=== PATIENT | female | born 1955 | race Caucasian/White ===

== ENCOUNTER 2016-07-19 07:12 | Emergency (ER) | payer MEDICARE, MEDICAID ==
[2016-07-19 07:42] VITALS: BP 147/85
--- NOTE | 2016-07-19 10:06 | RAD ---
INDICATION: Right upper extremity pain. COMPARISON: Correlation is made with a prior CT of the chest, abdomen and pelvis from May 23, 2016. TECHNIQUE: Multiple real-time, color flow and Doppler tracings of the right upper extremity were obtained. FINDINGS: The axillary, brachial, basilic and cephalic veins all demonstrate normal compressibility, augmentation with compression and phasic response with respiration. The radial and ulnar arteries demonstrate normal compressibility. The subclavian and internal jugular veins also demonstrate normal color flow imaging and phasic response with respiration. In the right supraclavicular region there is an enlarged lymph node corresponding to the patient's palpable abnormality measuring 1.4 x 0.9 x 1.1 cm. IMPRESSION: 1. NO EVIDENCE FOR DEEP VENOUS THROMBOSIS. 2. ENLARGED SUPRACLAVICULAR LYMPH NODE ON THE RIGHT SIDE.
--- NOTE | 2016-07-19 11:06 | UC ---
Shoulder Pain HPI - HPI Summary HPI Summary: RIGHT SHOULDER PAIN X 2 DAY + SWELLING OF THE NECK ON THE RIGHT SIDE NO FEVER, NO CHILLS - History of Current Complaint Chief Complaint: UCUpperExtremity Stated Complaint: RIGHT SHOULDER/ARM COMPLAINT Time Seen by Provider: 07/19/16 07:32 Hx Obtained From: Patient Hx Last Menstrual Period: 1998 Onset/Duration: Sudden Onset, Lasting Days - 2, Still Present Timing: Constant Severity Initially: Moderate Severity Currently: Moderate Location Of Pain: Is Discrete @ - RIGHT SHOULD / RIGHT SIDE OF THE NECK Pain Intensity: 9 Pain Scale Used: 0-10 Numeric Character: Aching Aggravating Factor(s): Movement Alleviating Factor(s): Nothing Associated Signs And Symptoms: Positive: Swelling - Allergies/Home Medications Allergies/Adverse Reactions: Allergies Allergy/AdvReac Type Severity Reaction Status Date / Time Cephalexin [From Keflex] Allergy Hives Verified 07/19/16 07:18 Fentanyl AdvReac Severe Nausea And Verified 07/19/16 07:18 Vomiting Meperidine [From Demerol HCl] AdvReac Severe halucinatio Verified 07/19/16 07:18 ns Morphine AdvReac Intermediate Nausea And Verified 07/19/16 07:18 Vomiting PMH/Surg Hx/FS Hx/Imm Hx Endocrine History Of: Denies: Diabetes, Thyroid Disease Cardiovascular History Of: Reports: Cardiac Disorders - heart attack 1998 "mild ", Deep Vein Thrombosis - hx pe 1996 Denies: Hypertension, Pacemaker/ICD, Congestive Heart Failure Respiratory History Of: Denies: COPD - Pulmonary Fibrosis 1999, Asthma GI/ History Of: Denies: Ulcer, Renal Disease Neurological History Of: Reports: Migraine Psychological History Of: Reports: Anxiety Cancer History Of: Reports: Breast Cancer - with lung mets - Surgical History Surgical History: Yes Surgery Procedure, Year, and Place: mastectomy right with reconstruction, CHOLECYSTECTOMY, apppendectomy, tonsillectomy,hysterectomy Partial,. lung biopsy X2,left arm r/t trauma, right knee, heart cath no stentsX2, fx left wrist and radial head-h/o having plate & screws, left arm -Radial head replacement, ulnar bone shortening, plate + screws removed-THYROID BIOPSY-PORT FOR CHEMO PUT IN AND TAKEN OUT - Family History Known Family History: Positive: Unknown, Other - positive FMH strep throat - Social History Alcohol Use: Rare Substance Use Type: None Smoking Status (MU): Never Smoked Tobacco - Immunization History Most Recent Influenza Vaccination: [id number] Review of Systems Constitutional: Negative Skin: Negative Eyes: Negative ENT: Negative Respiratory: Negative Cardiovascular: Negative All Other Systems Reviewed And Are Negative: Yes Physical Exam Triage Information Reviewed: Yes Appearance: Well-Appearing, No Pain Distress, Well-Nourished Vital Signs: Initial Vital Signs Temp 99.6 F 07/19/16 07:22 Pulse 99 07/19/16 07:22 Resp 16 07/19/16 07:22 BP 147/85 07/19/16 07:22 Pulse Ox 98 07/19/16 07:22 Eye Exam: Normal Eyes: Positive: Conjunctiva Clear ENT Exam: Normal ENT: Positive: Normal ENT inspection, Hearing grossly normal, Pharynx normal Neck exam: Normal Neck: Positive: Supple, Nontender, Other: - + SUPRACLAVICULAR SWELLING AND TENDERNESS OF THE RIGHT SIDE Respiratory: Positive: Lungs clear, Normal breath sounds, No respiratory distress Cardiovascular: Positive: RRR, No Murmur, Pulses Normal Musculoskeletal Exam: Normal Musculoskeletal: Positive: Strength Intact, ROM Intact, No Edema Skin: Positive: Other - + SWELLING/ ERYTHEMA / TENDENESS RIGHT FOREARM Shoulder Course/Dx - Differential Dx/Diagnosis Provider Diagnoses: LYMPHADENOPATHY Discharge - Discharge Plan Condition: Stable Disposition: HOME Prescriptions: Naproxen [Naproxen EC 500 MG TAB] 500 mg PO BID #20 tab Patient Education Materials: Lymphadenopathy (ED) Referrals: Gladys Delgado MD [Primary Care Provider] - 7 Days Additional Instructions: please follow up with your oncologist regarding the enlarged supraclavicular lymphnodes
== END 2016-07-19 10:26 | disposition home or self-care (01) ==
LOC: UCCORT 07:12
DX: R59.0 Localized enlarged lymph nodes (principal); I25.2 Old myocardial infarction; Z86.711 Personal history of pulmonary embolism; G43.909 Migraine, unspecified, not intractable, without status migrainosus; F41.9 Anxiety disorder, unspecified; Z85.3 Personal history of malignant neoplasm of breast; Z85.118 Personal history of other malignant neoplasm of bronchus and lung; Z90.11 Acquired absence of right breast and nipple; Z90.49 Acquired absence of other specified parts of digestive tract; Z90.711 Acquired absence of uterus with remaining cervical stump; Z96.622 Presence of left artificial elbow joint; Z88.1 Allergy status to other antibiotic agents; Z88.5 Allergy status to narcotic agent
CPT/HCPCS: 99212; G0463

== ENCOUNTER 2018-07-08 09:58 | Emergency (ER) | payer MEDICARE, MEDICAID ==
--- OUTSIDE RECORDS SUMMARY | 2018-07-08 10:04 | XMS REPORT | Continuity of Care Document ---
:1955 External Reference #:[id number] Author Name Dagmar Bell Care Team Providers Name Role Phone Isabel Barrera MD Primary Care Physician Unavailable Payers Date Identification Numbers Payment Provider Subscriber Policy Number: [id number] Medicare Linda Davis PayID: [id number] [address] [place] [address] Effective: 2013 Policy Number: [id number] Medicaid Linda Davis Group Name: 1 1 [address] PayID: [id number] [place] [address] Advance Directives Type Date Description Status Comment MOLST 03/30/2017 MOLST Current and Verified Other Directive 03/06/2014 Health Care Proxy Current and Verified Problems Active Problems Provider Date Malignant neoplasm of nipple and areola of Haylie Walden M.D. Onset: 2013 female breast Note: Dr bhakta (recurrence in 2011 ) on foslodex Hyperlipidemia Haylie Walden M.D. Onset: 07/30/2013 Diverticulosis of sigmoid colon Gladys Delgado M.D. Onset: 03/23/2016 Osteopenia Gladys Delgado M.D. Onset: 04/06/2016 Disorder of lung Val Ruiz MD Onset: 06/08/2016 Asthma without status asthmaticus Val Ruiz MD Onset: 06/29/2016 Mixed hyperlipidemia Carole Tran M.D. Onset: 09/14/2017 FH: Myocardial infarct in 1st degree male Caorle Tran M.D. Onset: 2017 relative <55 years Inactive Problems Depressive disorder Haylie Walden M.D. Onset: 07/30/2013 Inactive: 03/23/2016 Resolved Problems Acute pericarditis Haylie Walden M.D. 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 Allergies, Adverse Reactions, Alerts Active Allergies Reaction Severity Comments Date Morphine Nausea and Vomiting Moderate 07/30/2013 Demerol Moderate 07/30/2013 Effexor Made Feel Worse 10/29/2013 Medications Active Medications SIG Qnty Indications Ordering Date Provider Azithromycin two tabs day 6tabs J20.9 Erika Loaiza, 06/25/2018 250mg one, one daily N.P. Tablets till gone Prednisone 4 tablets by 40tabs J20.9 Erika Loaiza, 06/25/2018 10mg Tablets mouth for 4 days N.P. 3 tablets by mouth for 4 days 2 tablets by mouth for 4 days 1 tablet by mouth for 4 days Tylenol With Codeine 1 tablet by 21tabs J20.9 Erika Loaiza, 06/25/2018 #3 mouth every 8 N.P. 300-30mg Tablets hours as needed cough Tramadol HCL 1-2 tablets by 30tabs Zeyad Medina, 06/06/2018 50mg Tablets mouth every 6 MD hours as needed pain Tizanidine HCL take 1 tablet by 30tabs Erika Loaiza, 03/27/2018 4mg mouth every 8 N.P. Tablets hours as needed Sertraline HCL 1 by mouth every 30tabs F41.1 Erika Loaiza, 03/09/2018 100mg day N.P. Tablets Triamcinolone Apply Twice A 30units Erika Loaiza, 03/09/2018 Acetonide Day Unitl Clear N.P. 0.1% Cream Rosuvastatin Calcium take 1 tablet by 90tabs Carole Tran, 09/26/2017 10mg mouth every M.D. Tablets evening Trazodone HCL Take One Tablet 30tabs G47.00 Erika Fadia, 07/11/2017 50mg By Mouth AT N.P. Tablets Bedtime as Needed Alprazolam Take One Tablet 30tabs F41.9 Erika Fadia, 07/11/2017 0.25mg Tablets By Mouth Three N.P. Times A Day as Needed For Anxiety Maximum Daily Dose=3 Omeprazole Take One Capsule 90caps Gladys Delgado, 05/01/2017 20mg Capsules By Mouth Every M.D. DR Morning On Empty Stomach as Needed Multivitamin Adults once a day 90tabs Gladys Delgado, 07/06/2016 50+ M.D. Adlt 50+ Tablets Aspirin Chew One Tablet 90units Gladys Delgado, 09/03/2015 81mg Chewtabs By Mouth Every M.D. Day Vitamin C TR 1 tab by mouth 120tabs Gladys Delgado, 09/03/2015 500mg 2x per day M.D. Tablets ER Folic Acid 1 by mouth every 30tabs Gladys Delgado, 09/03/2015 1mg Tablets day M.D. Probiotic & 1 cap po 120caps Haylie Walden, 09/03/2015 Acidophilus Formula everyday M.D. Extra Strength Capsules Vitamin D3 Maximum 2 by mouth every Unknown Strength day 5000Unit Capsules Xopenex use one dose 72ml Erika Fadia, 1.25mg/3ML inhaled 3x daily N.P. Nebulizer for sob as needed Mushroom Immune 1 daily Unknown Supplement W/Miatake,Reish Fish Oil W/ [place] 3 1200 twice daily Unknown 360 Calcium W/Magnesium daily Unknown 1200mg Ventolin HFA 2 puffs by mouth 8gm Erika Monikn, 108(90Base) four times a day N.P. mcg/Act Aerosol as needed Green Tea Extract daily Unknown 750mg Capsules Cinnamon bid Unknown 500mg Tablets [place] Red daily Unknown Turmeric 2 po qd Unknown 500mg Tablets Co Q-10 1 by mouth every Unknown 300mg Capsules day Elderberry 1 po qd Unknown 550mg Oil Of Oregano 1200mg po qd Unknown Capsules Pycnogenol Complex once a day Unknown 100mg Tablets [place] 1000mg po qd as Unknown needed Faslodex every month Unknown 250mg/5ML starting 10/26/13 Solution History Medications Triamcinolone apply twice a 30units R21 Erika Loaiza, 02/09/2018 - Acetonide day until clear N.P. 02/23/2018 0.1% Cream Sertraline HCL 1 by mouth 30tabs F41.1 Erika Loaiza, 02/09/2018 - 50mg every day N.P. 03/09/2018 Tablets Escitalopram Oxalate 1 by mouth 30tabs F41.9 Erika Loaiza, 07/11/2017 - every day N.P. 08/14/2017 10mg Tablets Magnesium once a day 90caps Gladys Delgado, 03/30/2017 - 500mg M.D. 09/12/2017 Capsules [place]-3 1 tab by mouth Haylie Walden, 03/30/2017 - 1500mg Capsules twice daily M.D. 09/03/2017 Acid Movement Therapist 1 PO bid 60tabs K21.9 Gladys Delgado, 03/30/2017 - 150mg M.D. 07/11/2017 Tablets Calcium Take One Tablet 60tabs Gladys Delgado, 01/22/2017 - Carbonate-Vitamin D By Mouth Twice M.D. 09/03/2017 A Day [id number] Tablets Magnesium Gluconate 1 tab po 120tabs Gladys Delgado, 12/14/2016 - everyday M.D. 03/30/2017 27.5mg Tablets Tab-A-Ese Take One Tablet 90tabs Gladys Delgado, 12/12/2016 - Tablets By Mouth Every M.D. 08/14/2017 Day Omeprazole Take One 90caps K21.9 Gladys Delgado, 03/23/2016 - 20mg Capsule By M.D. 03/30/[address] Mouth Every Morning On Empty Stomach as Needed Magnesium Gluconate 1 tab po 120tabs Haylie Walden, 09/03/2015 - everyday M.D. 12/14/2016 500(27mg) mg Tablets [place]-3 Plus 1 capsule po 2x 120caps Haylie Walden, 09/03/2015 - 1000mg per day M.D. 03/30/2017 Capsules Calcium 500 + D3 1 tab by mouth 60tabs Gladys Delgado, 09/03/2015 - 2x per day M.D. 08/14/2017 [id number] Tablets Multivitamin Adult 120tabs Gladys Delgado, 09/03/2015 - M.D. 07/06/2016 Tablets Amoxicillin 1 by mouth 20caps J01.90 Haylie Walden, 03/10/2015 - 500mg twice a day M.D. 04/30/2015 Capsules Guaifenesin ER 1 by mouth 20tabs J01.90 Haylie Walden, 03/10/2015 - 600mg twice a day M.D. 04/30/2015 Tablets ER 12HR Omeprazole Take One 30caps K21.9 Haylie Walden, 03/10/2015 - 40mg Capsule By M.D. 03/23/[address] Mouth Every Day Escitalopram Oxalate 1 by mouth 30tabs 311 Haylie Walden, 10/21/2014 - every day M.D. 04/30/2015 10mg Tablets Amoxicillin/Clavulana 1 tab by mouth 20tabs 461.1 Haylie Walden, 2013 - te Potassium 2x per day M.D. 04/03/2014 875-125mg Tablets Aspirin 1 by mouth 120tabs Haylie Walden, 12/31/2013 - 81mg Tablets DR every day M.D. 09/03/2015 Ventolin HFA 2 puffs by 1units 786.05 Haylie Walden, 12/31/2013 - mouth four M.D. 01/06/2015 108(90Base) mcg/Act times a day as Aerosol needed Albuterol Sulfate 1 vial every 4 1box J84.112 Haylie Walden, 09/12/2013 - hour as needed M.D. 03/30/2017 (2.5mg/3ML) 0.083% ans every 2 Nebulizer hour if needed Venlafaxine HCL ER 1 by mouth 90tabs 311 Haylie Walden, 09/03/2013 - every day M.D. 10/29/2013 150mg Tablets ER 24HR Venlafaxine HCL ER 1 tab by mouth 1month 311 Haylie Walden, 07/30/2013 - every day 7 M.D. 09/03/2013 37.5mg Caps ER 24HR days the 2 tab by mouth every day 3 weeks Alprazolam take 1 tablet 90tabs F32.9 Haylie Walden, 07/30/2013 - 0.25mg by mouth three M.D. 03/30/2017 Tablets Dispers times a day as needed for anxiety Calcium 1 po bid 120tabs Haylie Walden, - Tab Tab MD 01/22/2017 Life Ext Vits. 2 po qd Unknown - 08/14/2017 Advocare Probiotic 1 po qd Unknown - 06/28/2016 Advocare [place] P[place] 2 po qd Unknown - 10/21/2014 Fish Oil 2 by mouth Unknown - Capsules every day 06/28/2016 Folic Acid 1 by mouth 90tabs Unknown - 800mcg every day 08/14/2017 Tablets Magnesium 1 every day 90tabs Unknown - 400mg Tablets 06/28/2016 Hyoscyamine Sulfate 1 by mouth 30tabs Unknown - ER daily every day 10/21/2014 0.375mg Tablets ER 12HR Lansoprazole Unknown - 30mg 04/30/[address] Oxycodone HCL Unknown - 5mg 03/23/2016 Tablets Trazodone HCL Unknown - 100mg 04/30/2015 Tablets Vitamin C Plus 1 by mouth bid Unknown - 500mg 08/14/2017 Tablets Melatonin ER 1 by mouth Unknown - 5mg every night at 01/15/2018 Tablets ER bedtime prn Cordyceps Mushroom bid Unknown - Immune Supplement 01/15/2018 1500mg Ambien one by mouth at Unknown - 5mg Tablets bedtime as 02/09/2018 needed for sleep Probiotic 1 by mouth 14caps Haylie Walden, - Capsules every day M.D. 10/29/2013 Xopenex every 6 to 8 100units Haylie Walden, - 1.25mg/3ML hours as needed M.D. 04/30/2015 Nebulizer Buspirone HCL 1 by mouth 30tabs Haylie Walden, - 5mg twice a day M.D. 09/03/2013 Tablets Bupropion HCL ER (SR) 1 tab bid Haylie Walden, - M.D. 09/03/2013 200mg Tablets ER 12HR Alprazolam one by mouth up 30tabs Unknown - 0.25mg to three times 07/31/2013 Tablets daily as needed for anxiety Diazepam 1 tab 30 2tabs Haylie Walden - 5mg Tablets minutes before M.D. 09/03/2013 mri, make take a second tablet if needed Trazodone HCL 1 tablet at 30tabs Haylie Walden, - 50mg bedtime as M.D. 04/03/2014 Tablets needed Aspirin 1 by mouth Haylie Walden, - 325mg Tablets every day M.D. 12/31/2013 Lipitor 1 by mouth 90tabs Haylie Walden, - 10mg Tablets every night at M.D. 09/03/2013 bedtime Advair Diskus ( Not Using) 1 1units Erika Loaiza, - puff by mouth N.P. 03/29/2018 250-50mcg/Dose twice a day prn Aerosol Metoprolol Tartrate 1/2 by mouth 30tabs Haylie Walden, - twice a day M.D. 10/29/2013 25mg Tablets Dexilant by mouth every 30caps Haylie Walden, - 60mg Capsules day M.D. 12/31/2013 Vitamin D 1 by mouth 30caps Gladys Delgado, - 2000Unit every day (pt M.D. 05/22/2018 Capsules takes 53534 iu daily) Calcium 2 by mouth 60tabs Haylie Walden, - 500mg Tablets every day M.D. 10/29/2013 One Daily Womens Haylie Walden, - M.D. 10/29/2013 Tablets Immunizations CPT Code Status Date Vaccine Lot # [id number] Given 03/30/2017 Pneumonia Vaccine [id number] Given 11/12/2016 Influenza Virus Vaccine, Quadrivalent, Split, Preservative Free [id number] Given 03/25/2016 Tdap - Tetanus/Diptheria/Acellular Pertussis [id number] Given 03/23/2016 Pneumococcal Conjugate Vaccine 13 Valent For [id number] Intramuscular Use 11277 Given 01/19/2016 Influ Virus Vaccine, Quadrivalent, Split Virus, [place] [address] Given 11/14/2014 Influenza Virus Vaccine, Quadrivalent, Split, Preservative Free [id number] Given 12/03/2013 Flu Vaccine NOS Vital Signs Date Vital Result Comment 06/25/2018 11:39am Height 65 inches 5'5" Weight 168.00 lb Heart Rate 95 /min BP Systolic 112 mmHg BP Diastolic 75 mmHg Body Temperature 98.1 F O2 % BldC Oximetry 97 % BMI (Body Mass Index) 28.0 kg/m2 06/05/2018 8:59am Height 65 inches 5'5" Weight 165.00 lb Patient stated Heart Rate 72 /min BP Systolic 134 mmHg BP Diastolic 86 mmHg Respiratory Rate 16 /min Pain Level 6 BMI (Body Mass Index) 27.5 kg/m2 05/25/2018 1:13pm Height 65 inches 5'5" Weight 168.00 lb Heart Rate 105 /min BP Systolic Sitting 124 mmHg BP Diastolic Sitting 72 mmHg Respiratory Rate 12 /min Pain Level 8 O2 % BldC Oximetry 97 % BMI (Body Mass Index) 28.0 kg/m2 05/22/2018 11:11am Height 56.5 inches 4'8.50" Weight 170.00 lb Heart Rate 81 /min BP Systolic 127 mmHg BP Diastolic 83 mmHg Body Temperature 98.3 F O2 % BldC Oximetry 96 % BMI (Body Mass Index) 37.4 kg/m2 04/02/2018 8:40am Height 56.5 inches 4'8.50" Weight 166.50 lb Heart Rate 73 /min BP Systolic Sitting 137 mmHg reg adult cuff left arm BP Diastolic Sitting 88 mmHg reg adult cuff left arm Respiratory Rate 16 /min Body Temperature 97.9 F O2 % BldC Oximetry 98 % at rest on room air BMI (Body Mass Index) 36.7 kg/m2 03/23/2018 10:34am Height 65.25 inches 5'5.25" Weight 165.00 lb Heart Rate 82 /min BP Systolic 120 mmHg BP Diastolic 82 mmHg Body Temperature 98.7 F O2 % BldC Oximetry 96 % BMI (Body Mass Index) 27.2 kg/m2 03/09/2018 10:06am Height 65.25 inches 5'5.25" Weight 167.00 lb Heart Rate 74 /min BP Systolic 125 mmHg BP Diastolic 82 mmHg Body Temperature 97.9 F O2 % BldC Oximetry 97 % BMI (Body Mass Index) 27.6 kg/m2 02/23/2018 10:17am Height 65.25 inches 5'5.25" Weight 168.00 lb Heart Rate 106 /min BP Systolic 100 mmHg BP Diastolic 56 mmHg O2 % BldC Oximetry 95 % BMI (Body Mass Index) 27.7 kg/m2 02/09/2018 11:16am Height 65.25 inches 5'5.25" Weight 170.00 lb Heart Rate 83 /min BP Systolic 118 mmHg BP Diastolic 82 mmHg Body Temperature 97.5 F O2 % BldC Oximetry 98 % BMI (Body Mass Index) 28.1 kg/m2 01/16/2018 10:46am Height 65.25 inches 5'5.25" Weight 166.00 lb with shoes Heart Rate 78 /min BP Systolic Sitting 110 mmHg lue reg cuff BP Diastolic Sitting 76 mmHg lue reg cuff BP Systolic Standing 112 mmHg lue reg cuff BP Diastolic Standing 78 mmHg lue reg cuff BMI (Body Mass Index) 27.4 kg/m2 Ejection Fraction 60-65% echo. 09/21/2017 09/14/2017 1:45pm Height 65.25 inches 5'5.25" Weight 166.00 lb without shoes Heart Rate 102 /min BP Systolic Sitting 114 mmHg Lue reg cuff BP Diastolic Sitting 80 mmHg Lue reg cuff BP Systolic Standing 120 mmHg Lue reg cuff BP Diastolic Standing 72 mmHg Lue reg cuff Respiratory Rate 16 /min BMI (Body Mass Index) 27.4 kg/m2 08/14/2017 9:53am Weight 162.00 lb Heart Rate 92 /min BP Systolic 128 mmHg BP Diastolic 80 mmHg Body Temperature 97.9 F O2 % BldC Oximetry 97 % 07/11/2017 10:54am Height 66.2 inches 5'6.20" Weight 168.50 lb Heart Rate 88 /min BP Systolic 120 mmHg BP Diastolic 76 mmHg Body Temperature 97.7 F O2 % BldC Oximetry 94 % BMI (Body Mass Index) 27.0 kg/m2 03/30/2017 8:51am Height 66.2 inches 5'6.20" Weight 164.00 lb Heart Rate 85 /min BP Systolic Sitting 120 mmHg BP Diastolic Sitting 78 mmHg O2 % BldC Oximetry 98 % BMI (Body Mass Index) 26.3 kg/m2 06/29/2016 9:08am Height 65 inches 5'5" Weight 165.00 lb Heart Rate 88 /min BP Systolic Sitting 140 mmHg BP Diastolic Sitting 80 mmHg Respiratory Rate 16 /min O2 % BldC Oximetry 97 % BMI (Body Mass Index) 27.5 kg/m2 06/08/2016 9:42am Height 65 inches 5'5" Weight 165.00 lb Heart Rate 83 /min BP Systolic Sitting 126 mmHg BP Diastolic Sitting 78 mmHg Respiratory Rate 14 /min O2 % BldC Oximetry 98 % BMI (Body Mass Index) 27.5 kg/m2 03/23/2016 9:12am Height 67 inches 5'7" Weight 173.00 lb Heart Rate 88 /min BP Systolic Sitting 122 mmHg BP Diastolic Sitting 70 mmHg Respiratory Rate 15 /min Body Temperature 98.0 F O2 % BldC Oximetry 98 % BMI (Body Mass Index) 27.1 kg/m2 10/08/2015 2:01pm Weight 172.00 lb with shoes Heart Rate 119 /min BP Systolic Sitting 110 mmHg BP Diastolic Sitting 80 mmHg Body Temperature 97.2 F O2 % BldC Oximetry 98 % 09/03/2015 3:30pm Weight 171.00 lb Heart Rate 108 /min BP Systolic Sitting 128 mmHg BP Diastolic Sitting 70 mmHg O2 % BldC Oximetry 97 % 06/30/2015 3:21pm Weight 168.00 lb Heart Rate 107 /min BP Systolic Sitting 121 mmHg BP Diastolic Sitting 80 mmHg Body Temperature 98.0 F 04/30/2015 10:03am Height 65 inches 5'5" Weight 167.00 lb Heart Rate 81 /min BP Systolic 120 mmHg BP Diastolic 88 mmHg Body Temperature 97.7 F O2 % BldC Oximetry 98 % BMI (Body Mass Index) 27.8 kg/m2 03/10/2015 3:50pm Weight 170.00 lb Heart Rate 56 /min BP Systolic Sitting 139 mmHg BP Diastolic Sitting 83 mmHg Body Temperature 98.7 F 02/17/2015 10:23am Height 65 inches 5'5" Weight 161.00 lb Heart Rate 79 /min BP Systolic Sitting 122 mmHg BP Diastolic Sitting 76 mmHg Body Temperature 97.5 F O2 % BldC Oximetry 97 % BMI (Body Mass Index) 26.8 kg/m2 01/06/2015 11:25am Height 65 inches 5'5" Weight 163.00 lb Heart Rate 71 /min BP Systolic 118 mmHg BP Diastolic 80 mmHg O2 % BldC Oximetry 98 % BMI (Body Mass Index) 27.1 kg/m2 12/02/2014 10:49am Height 65 inches 5'5" Weight 161.00 lb Heart Rate 82 /min BP Systolic Sitting 124 mmHg BP Diastolic Sitting 80 mmHg Body Temperature 98.6 F O2 % BldC Oximetry 96 % BMI (Body Mass Index) 26.8 kg/m2 11/11/2014 11:28am Height 65 inches 5'5" Weight 161.00 lb Heart Rate 98 /min BP Systolic Sitting 118 mmHg BP Diastolic Sitting 72 mmHg Body Temperature 98.0 F O2 % BldC Oximetry 98 % BMI (Body Mass Index) 26.8 kg/m2 10/21/2014 8:45am Height 65 inches 5'5" Weight 161.00 lb Heart Rate 94 /min BP Systolic Sitting 124 mmHg BP Diastolic Sitting 78 mmHg O2 % BldC Oximetry 98 % BMI (Body Mass Index) 26.8 kg/m2 10/02/2014 1:52pm Height 65 inches 5'5" Weight 169.00 lb Heart Rate 94 /min BP Systolic Sitting 120 mmHg BP Diastolic Sitting 78 mmHg Body Temperature 98.5 F O2 % BldC Oximetry 96 % BMI (Body Mass Index) 28.1 kg/m2 09/12/2014 2:27pm Height 65 inches 5'5" Weight 161.00 lb Heart Rate 88 /min BP Systolic Sitting 124 mmHg LA reg cuff BP Diastolic Sitting 92 mmHg LA reg cuff BP Systolic Standing 122 mmHg LA BP Diastolic Standing 90 mmHg LA Respiratory Rate 16 /min BMI (Body Mass Index) 26.8 kg/m2 Ejection Fraction 50-55% 09/05/13 cath 04/03/2014 10:33am Height 65 inches 5'5" Weight 162.75 lb Heart Rate 89 /min BP Systolic Sitting 143 mmHg BP Diastolic Sitting 82 mmHg BMI (Body Mass Index) 27.1 kg/m2 02/14/2014 11:35am Height 65 inches 5'5" Weight 154.50 lb Heart Rate 94 /min BP Systolic Sitting 132 mmHg BP Diastolic Sitting 85 mmHg Body Temperature 99.2 F BMI (Body Mass Index) 25.7 kg/m2 12/31/2013 8:37am Height 65 inches 5'5" Weight 151.25 lb Heart Rate 93 /min BP Systolic Sitting 115 mmHg BP Diastolic Sitting 78 mmHg BMI (Body Mass Index) 25.2 kg/m2 10/29/2013 10:43am Height 65 inches 5'5" Weight 150.00 lb Heart Rate 83 /min BP Systolic Sitting 102 mmHg BP Diastolic Sitting 52 mmHg O2 % BldC Oximetry 98 % BMI (Body Mass Index) 25.0 kg/m2 09/20/2013 1:43pm Height 65 inches 5'5" Weight 150.00 lb Heart Rate 100 /min BP Systolic Sitting 104 mmHg LA BP Diastolic Sitting 74 mmHg LA BP Systolic Standing 100 mmHg BP Diastolic Standing 70 mmHg Respiratory Rate 14 /min BMI (Body Mass Index) 25.0 kg/m2 09/18/2013 3:40pm Height 65 inches 5'5" Weight 147.00 lb Heart Rate 88 /min 92 BP Systolic Sitting 106 mmHg left arm, reg cuff BP Diastolic Sitting 78 mmHg left arm, reg cuff BP Systolic Standing 104 mmHg left arm, reg cuff BP Diastolic Standing 72 mmHg left arm, reg cuff Respiratory Rate 14 /min BMI (Body Mass Index) 24.5 kg/m2 09/11/2013 2:40pm Heart Rate 100 /min BP Systolic Sitting 108 mmHg BP Diastolic Sitting 68 mmHg Respiratory Rate 16 /min 09/04/2013 9:51am Height 65 inches 5'5" Weight 146.00 lb no shoes Heart Rate 74 /min BP Systolic Sitting 102 mmHg LA, reg cuff BP Diastolic Sitting 72 mmHg LA, reg cuff BP Systolic Standing 94 mmHg LA BP Diastolic Standing 70 mmHg LA Respiratory Rate 16 /min BMI (Body Mass Index) 24.3 kg/m2 09/03/2013 9:47am Weight 146.00 lb Heart Rate 98 /min BP Systolic Sitting 120 mmHg BP Diastolic Sitting 70 mmHg 07/30/2013 12:57pm Height 65 inches 5'5" Weight 147.25 lb Heart Rate 80 /min BP Systolic Sitting 98 mmHg BP Diastolic Sitting 68 mmHg Body Temperature 98.6 F BMI (Body Mass Index) 24.5 kg/m2 Results Test Date Facility Test Result H/L Range Note Lipid Panel - 02/21/2018 [facility] Creatine 135 U/L N 10-[address] Kinase(CK) [place] [address] [phone] Comp Metabolic 02/21/2018 [facility] Sodium 141 mmol/L N 135- [address] [place] [address] [phone] Potassium 4.8 mmol/L N 3.5-5.0 Chloride 105 mmol/L N 101-111 Co2 Carbon Dioxide 26 mmol/L N 22-32 Anion Gap 10 mmol/L N 2-11 Glucose 100 mg/dL N 70-100 Blood Urea Nitrogen 20 mg/dL N 6-24 Creatinine 0.78 mg/dL N 0.51-0.95 BUN/Creatinine Ratio 25.6 High 8-20 Calcium 9.9 mg/dL N 8.6-10.3 Total Protein 7.3 g/dL N 6.4-8.9 Albumin 4.7 g/dL N 3.2-5.2 Globulin 2.6 g/dL N 2-4 Albumin/Globulin Ratio 1.8 N 1-3 Total Bilirubin 0.50 mg/dL N 0.2-1.0 Alkaline Phosphatase 96 U/L N 34-104 Alt 44 U/L N 7-52 Ast 34 U/L N 13-39 Egfr Non- 75.1 >60 Egfr 90.9 >60 1 Lipid Profile 02/21/2018 [facility] Triglycerides 176 mg/dL 2 (Trig/Chol/HDL) [place] [address] [phone] Cholesterol 150 mg/dL 3 HDL Cholesterol 53.1 mg/dL 4 LDL Cholesterol 62 mg/dL 5 CBC Auto Diff 12/12/2017 [facility] White Blood 5.5 10^3/uL N 3.5-10.8 [place] [address] [phone] Red Blood Count 4.72 10^6/uL N 4.00-5.40 Hemoglobin 13.7 g/dL N 12.0-16.0 Hematocrit 40 % N 35-47 Mean Corpuscular Volume 84 fL N 80-97 Mean Corpuscular Hemoglobin 29 pg N 27-31 Mean Corpuscular HGB Conc 35 g/dL N 31-36 Red Cell Distribution Width 13 % N 10.5-15 Platelet Count 212 10^3/uL N 150-450 Mean Platelet Volume 8.9 um3 N 7.4-10.4 Abs Neutrophils 3.3 10^3/uL N 1.5-7.7 Abs Lymphocytes 1.6 10^3/uL N 1.0-4.8 Abs Monocytes 0.4 10^3/uL N 0-0.8 Abs Eosinophils 0.1 10^3/uL N 0-0.6 Abs Basophils 0.1 10^3/uL N 0-0.2 Abs Nucleated RBC 0 10^3/uL Granulocyte % 59.1 % N 38-83 Lymphocyte % 29.7 % N 25-47 Monocyte % 8.0 % High 0-7 Eosinophil % 2.0 % N 0-6 Basophil % 1.2 % N 0-2 Nucleated Red Blood Cells % 0.2 Comp Metabolic Panel 12/12/2017 [facility] Sodium 140 mmol/L N 135-[address] [place] [address] [phone] Potassium 4.2 mmol/L N 3.5-5.0 Chloride 104 mmol/L N 101-111 Co2 Carbon Dioxide 27 mmol/L N 22-32 Anion Gap 9 mmol/L N 2-11 Glucose 98 mg/dL N 70-100 Blood Urea Nitrogen 19 mg/dL N 6-24 Creatinine 0.71 mg/dL N 0.51-0.95 BUN/Creatinine Ratio 26.8 High 8-20 Calcium 10.1 mg/dL N 8.6-10.3 Total Protein 7.1 g/dL N 6.4-8.9 Albumin 4.8 g/dL N 3.2-5.2 Globulin 2.3 g/dL N 2-4 Albumin/Globulin Ratio 2.1 N 1-3 Total Bilirubin 0.60 mg/dL N 0.2-1.0 Alkaline Phosphatase 91 U/L N 34-104 Alt 41 U/L N 7-52 Ast 29 U/L N 13-39 Egfr Non- 83.7 >60 Egfr 101.3 >60 6 Laboratory test finding 12/12/2017 [facility] CA 15-3 14 U/mL <[address] [place] [address] [phone] Breast Carcinoma Ag(Ca27.29) 19.3 U/mL <=38.0 8 Laboratory test 09/15/2017 [facility] C Reactive 3.41 mg/L N < 8.[address] [place] [address] [phone] Comp Metabolic 05/23/2017 [facility] Sodium 139 mmol/L N 133- [address] [place] [address] [phone] Potassium 4.0 mmol/L N 3.5-5.0 Chloride 104 mmol/L N 101-111 Co2 Carbon Dioxide 26 mmol/L N 22-32 Anion Gap 9 mmol/L N 2-11 Glucose 108 mg/dL High 70-100 Blood Urea Nitrogen 17 mg/dL N 6-24 Creatinine 0.73 mg/dL N 0.51-0.95 BUN/Creatinine Ratio 23.3 High 8-20 Calcium 9.7 mg/dL N 8.6-10.3 Total Protein 6.7 g/dL N 6.4-8.9 Albumin 4.2 g/dL N 3.2-5.2 Globulin 2.5 g/dL N 2-4 Albumin/Globulin Ratio 1.7 N 1-3 Total Bilirubin 0.60 mg/dL N 0.2-1.0 Alkaline Phosphatase 77 U/L N 34-104 Alt 30 U/L N 7-52 Ast 24 U/L N 13-39 Egfr Non- 81.3 >60 Egfr 104.6 >60 9 CBC No Diff 05/23/2017 [facility] White Blood 4.3 10^3/uL N 3.5-10.[address] [place] [address] [phone] Red Blood Count 4.55 10^6/uL N 4.0-5.4 Hemoglobin 13.2 g/dL N 12.0-16.0 Hematocrit 39 % N 35-47 Mean Corpuscular Volume 85 fL N 80-97 Mean Corpuscular Hemoglobin 29 pg N 27-31 Mean Corpuscular HGB Conc 34 g/dL N 31-36 Red Cell Distribution Width 13 % N 10.5-15 Platelet Count 200 10^3/uL N 150-450 Mean Platelet Volume 9 um3 N 7.4-10.4 Lipid Profile 05/23/2017 [facility] Triglycerides 178 mg/dL 10 (Trig/Chol/HDL) [address] [place] [address] [phone] Cholesterol 237 mg/dL 11 HDL Cholesterol 47.6 mg/dL 12 LDL Cholesterol 154 mg/dL 13 Lipid Profile 11/08/2016 [facility] Triglycerides 215 mg/dL N 14 (Trig/Chol/HDL) [address] [place] [address] [phone] Cholesterol 228 mg/dL N 15 HDL Cholesterol 45.8 mg/dL N 16 LDL Cholesterol 139 mg/dL N 17 CBC Auto Diff 07/28/2016 [facility] White Blood 6.6 10^3/uL N 3.5-10.[address] [place] [address] [phone] Red Blood Count 4.75 10^6/uL N 4.0-5.4 Hemoglobin 13.6 g/dL N 12.0-16.0 Hematocrit 40 % N 35-47 Mean Corpuscular Volume 85 fL N 80-97 Mean Corpuscular Hemoglobin 29 pg N 27-31 Mean Corpuscular HGB Conc 34 g/dL N 31-36 Red Cell Distribution Width 13 % N 10.5-15 Platelet Count 223 10^3/uL N 150-450 Mean Platelet Volume 8 um3 N 7.4-10.4 Abs Neutrophils 4.1 10^3/uL N 1.5-7.7 Abs Lymphocytes 1.9 10^3/uL N 1.0-4.8 Abs Monocytes 0.4 10^3/uL N 0-0.8 Abs Eosinophils 0.2 10^3/uL N 0-0.6 Abs Basophils 0.1 10^3/uL N 0-0.2 Abs Nucleated RBC 0.01 10^3/uL N Granulocyte % 61.3 % N 38-83 Lymphocyte % 28.7 % N 25-47 Monocyte % 6.3 % N 1-9 Eosinophil % 2.7 % N 0-6 Basophil % 1.0 % N 0-2 Nucleated Red Blood Cells % 0.1 N Comp Metabolic Panel 07/28/2016 [facility] Sodium 140 mmol/L N 133-[address] [place] [address] [phone] Potassium 3.6 mmol/L N 3.5-5.0 Chloride 105 mmol/L N 101-111 Co2 Carbon Dioxide 25 mmol/L N 22-32 Anion Gap 10 mmol/L N 2-11 Glucose 108 mg/dL High 70-100 Blood Urea Nitrogen 18 mg/dL N 6-24 Creatinine 0.74 mg/dL N 0.51-0.95 BUN/Creatinine Ratio 24.3 High 8-20 Calcium 9.5 mg/dL N 8.6-10.3 Total Protein 7.5 g/dL N 6.4-8.9 Albumin 4.4 g/dL N 3.2-5.2 Globulin 3.1 g/dL N 2-4 Albumin/Globulin Ratio 1.4 N 1-3 Total Bilirubin 0.30 mg/dL N 0.2-1.0 Alkaline Phosphatase 93 U/L N 34-104 Alt 45 U/L N 7-52 Ast 30 U/L N 13-39 Egfr Non- 80.3 N >60 Egfr 103.3 N >60 18 Laboratory test 07/28/2016 [facility] CA 27-29 17.72 U/mL N 3.5-38.6 19 finding [address] [place] [address] [phone] CA 15-3 16 U/mL N <30 20 Lipid Profile 04/25/2016 [facility] Triglycerides 324 mg/dL N 21 (Trig/Chol/HDL) [address] [place] [address] [phone] Cholesterol 273 mg/dL N 22 HDL Cholesterol 42.6 mg/dL N 23 LDL Cholesterol 166 mg/dL N 24 Laboratory 04/25/2016 [facility] Hepatitis C Nonreactive N Nonreactive 25 test finding [address] [facility] [place] [place] [address] [phone] CBC Auto Diff 04/25/2016 [facility] White Blood 5.1 10^3/uL N 3.5-10.8 [address] [facility] [place] [place] [address] [phone] Red Blood Count 4.59 10^6/uL N 4.0-5.4 Hemoglobin 13.2 g/dL N 12.0-16.0 Hematocrit 39 % N 35-47 Mean Corpuscular Volume 84 fL N 80-97 Mean Corpuscular Hemoglobin 29 pg N 27-31 Mean Corpuscular HGB Conc 34 g/dL N 31-36 Red Cell Distribution Width 13 % N 10.5-15 Platelet Count 191 10^3/uL N 150-450 Mean Platelet Volume 9 um3 N 7.4-10.4 Abs Neutrophils 2.8 10^3/uL N 1.5-7.7 Abs Lymphocytes 1.6 10^3/uL N 1.0-4.8 Abs Monocytes 0.5 10^3/uL N 0-0.8 Abs Eosinophils 0.2 10^3/uL N 0-0.6 Abs Basophils 0.1 10^3/uL N 0-0.2 Abs Nucleated RBC 0 10^3/uL N Granulocyte % 55.1 % N 38-83 Lymphocyte % 31.3 % N 25-47 Monocyte % 9.0 % N 1-9 Eosinophil % 3.4 % N 0-6 Basophil % 1.2 % N 0-2 Nucleated Red Blood Cells % 0 N Comp Metabolic Panel 04/25/2016 [facility] Sodium 140 mmol/L N 133-[address] [place] [address] [phone] Potassium 4.3 mmol/L N 3.5-5.0 Chloride 105 mmol/L N 101-111 Co2 Carbon Dioxide 25 mmol/L N 22-32 Anion Gap 10 mmol/L N 2-11 Glucose 104 mg/dL High 70-100 Blood Urea Nitrogen 19 mg/dL N 6-24 Creatinine 0.72 mg/dL N 0.51-0.95 BUN/Creatinine Ratio 26.4 High 8-20 Calcium 9.8 mg/dL N 8.6-10.3 Total Protein 7.0 g/dL N 6.4-8.9 Albumin 4.2 g/dL N 3.2-5.2 Globulin 2.8 g/dL N 2-4 Albumin/Globulin Ratio 1.5 N 1-3 Total Bilirubin 0.40 mg/dL N 0.2-1.0 Alkaline Phosphatase 96 U/L N 34-104 Alt 32 U/L N 7-52 Ast 23 U/L N 13-39 Egfr Non- 82.9 N >60 Egfr 106.6 N >60 26 Laboratory test finding 04/25/2016 [facility] CA 15-3 18 U/mL N <[address] [place] [address] [phone] CA 27-29 23.31 U/mL N 3.5-38.6 28 Laboratory test 10/12/2015 [facility] TSH (Thyroid 1.12 mcIU/mL N 0.34-5.[address] Stim Horm) [place] [address] [phone] Free T4 (Free Thyroxine) 0.91 ng/dL N 0.61-1.12 Lipid Profile 10/12/2015 [facility] Triglycerides 160 mg/dL N 29 (Trig/Chol/HDL) [address] [place] [address] [phone] Cholesterol 229 mg/dL N 30 HDL Cholesterol 43.9 mg/dL N 31 LDL Cholesterol 153 mg/dL N 32 Laboratory test 06/30/2015 [facility] Culture Throat SEE RESULT [address] [place] [address] [phone] Laboratory test 06/30/2015 [facility] A neg finding Strep Lipid Profile 09/15/2014 [facility] Triglycerides 164 mg/dL N 34, 35 (Trig/Chol/HDL) [address] [place] [address] [phone] Cholesterol 228 mg/dL N 36 HDL Cholesterol 47.1 mg/dL N 37 LDL Cholesterol 148 mg/dL N 38 Laboratory test 09/15/2014 [facility] TSH (Thyroid 0.93 ?IU/mL N 0.34-5.[address]orm) [place] [address] [phone] Free T4 (Free Thyroxine) 1.17 ng/mL High 0.61-1.12 40 CBC Auto Diff 02/04/2014 [facility] White Blood 5.1 10^3/uL N 4.8-10.[address] [place] [address] [phone] Red Blood Count 4.80 10^6/uL N 4.0-5.4 Hemoglobin 14.0 g/dL N 12.0-16.0 Hematocrit 41 % N 35-47 Mean Corpuscular Volume 86 fL N 80-97 Mean Corpuscular Hemoglobin 29 pg N 27-31 Mean Corpuscular HGB Conc 34 g/dL N 31-36 Red Cell Distribution Width 13 % N 10.5-15 Platelet Count 201 10^3/uL N 150-450 Mean Platelet Volume 8 um3 N 7.4-10.4 Abs Neutrophils 3.5 10^3/uL N 1.5-7.7 Abs Lymphocytes 1.1 10^3/uL N 1.0-4.8 Abs Monocytes 0.4 10^3/uL N 0-0.8 Abs Eosinophils 0.1 10^3/uL N 0-0.6 Abs Basophils 0 10^3/uL N 0-0.2 Abs Nucleated RBC 0.02 10^3/uL N Granulocyte % 68.0 % N 38-83 Lymphocyte % 21.8 % Low 25-47 Monocyte % 7.7 % N 1-9 Eosinophil % 1.8 % N 0-6 Basophil % 0.7 % N 0-2 Nucleated Red Blood Cells % 0.3 N Comp Metabolic Panel 02/04/2014 [facility] Sodium 140 mmol/L N 133-[address] [place] [address] [phone] Potassium 4.0 mmol/L N 3.5-5.0 41 Chloride 105 mmol/L N 101-111 Co2 Carbon Dioxide 27 mmol/L N 22-32 Anion Gap 8 mmol/L N 2-11 Glucose 101 mg/dL High 70-100 Blood Urea Nitrogen 16 mg/dL N 6-24 Creatinine 0.75 mg/dL N 0.51-0.95 BUN/Creatinine Ratio 21.3 High 8-20 Calcium 9.9 mg/dL N 8.6-10.3 Total Protein 7.4 g/dL N 6.4-8.9 Albumin 4.7 g/dL N 3.2-5.2 Globulin 2.7 g/dL N 2-4 Albumin/Globulin Ratio 1.7 N 1-3 Total Bilirubin 0.60 mg/dL N 0.2-1.0 Alkaline Phosphatase 80 U/L N 34-104 Alt 25 U/L N 7-52 Ast 22 U/L N 13-39 Egfr Non- 79.6 N >60 Egfr 102.4 N >60 42 Laboratory test 02/04/2014 [facility] CA 27-29 20.51 U/mL N 3.5-38.6 [address] [place] [address] [phone] CA 15-3 17 U/mL N <30 44 CBC Auto Diff 12/31/2013 [facility] White Blood 5.8 10^3/uL N 4.8-10.[address] [place] [address] [phone] Red Blood Count 4.50 10^6/uL N 4.0-5.4 Hemoglobin 13.3 g/dL N 12.0-16.0 Hematocrit 38 % N 35-47 Mean Corpuscular Volume 85 fL N 80-97 Mean Corpuscular Hemoglobin 30 pg N 27-31 Mean Corpuscular HGB Conc 35 g/dL N 31-36 Red Cell Distribution Width 13 % N 10.5-15 Platelet Count 218 10^3/uL N 150-450 Mean Platelet Volume 9 um3 N 7.4-10.4 Abs Neutrophils 4.0 10^3/uL N 1.5-7.7 Abs Lymphocytes 1.4 10^3/uL N 1.0-4.8 Abs Monocytes 0.3 10^3/uL N 0-0.8 Abs Eosinophils 0.1 10^3/uL N 0-0.6 Abs Basophils 0 10^3/uL N 0-0.2 Abs Nucleated RBC 0 10^3/uL N Granulocyte % 68.5 % N 38-83 Lymphocyte % 23.9 % Low 25-47 Monocyte % 6.0 % N 1-9 Eosinophil % 1.1 % N 0-6 Basophil % 0.5 % N 0-2 Nucleated Red Blood Cells % 0.1 N Comp Metabolic Panel 12/31/2013 [facility] Sodium 139 mmol/L N 133-[address] [place] [address] [phone] Potassium 3.9 mmol/L N 3.7-5.6 Chloride 104 mmol/L N 101-111 Co2 Carbon Dioxide 25 mmol/L N 22-32 Anion Gap 10 mmol/L N 2-11 Glucose 114 mg/dL High 70-100 Blood Urea Nitrogen 16 mg/dL N 6-24 Creatinine 0.79 mg/dL N 0.51-0.95 BUN/Creatinine Ratio 20.3 High 8-20 Calcium 10.0 mg/dL N 8.6-10.3 Total Protein 7.0 g/dL N 6.4-8.9 Albumin 4.5 g/dL N 3.2-5.2 Globulin 2.5 g/dL N 2-4 Albumin/Globulin Ratio 1.8 N 1-3 Total Bilirubin 0.40 mg/dL N 0.2-1.0 Alkaline Phosphatase 76 U/L N 34-104 Alt 18 U/L N 7-52 Ast 19 U/L N 13-39 Egfr Non- 75.0 N >60 Egfr 96.5 N >60 45 Laboratory test 12/31/2013 [facility] Free T4 1.07 ng/mL N 0.61-1.[address] [place] [address] [phone] TSH (Thyroid Stimulating Horm) 1.36 IU/mL N 0.34-5.60 CA 27-29 19.24 U/mL N 3.5-38.6 46 CA 15-3 17 U/mL N <30 47 CBC Auto Diff 12/03/2013 [facility] White Blood 4.9 10^3/uL N 4.8-10.[address] [place] [address] [phone] Red Blood Count 4.55 10^6/uL N 4.0-5.4 Hemoglobin 13.5 g/dL N 12.0-16.0 Hematocrit 39 % N 35-47 Mean Corpuscular Volume 86 fL N 80-97 Mean Corpuscular Hemoglobin 30 pg N 27-31 Mean Corpuscular HGB Conc 35 g/dL N 31-36 Red Cell Distribution Width 13 % N 10.5-15 Platelet Count 207 10^3/uL N 150-450 Mean Platelet Volume 8 um3 N 7.4-10.4 Abs Neutrophils 3.2 10^3/uL N 1.5-7.7 Abs Lymphocytes 1.3 10^3/uL N 1.0-4.8 Abs Monocytes 0.3 10^3/uL N 0-0.8 Abs Eosinophils 0.1 10^3/uL N 0-0.6 Abs Basophils 0 10^3/uL N 0-0.2 Abs Nucleated RBC 0 10^3/uL N Granulocyte % 65.0 % N 38-83 Lymphocyte % 25.9 % N 25-47 Monocyte % 6.8 % N 1-9 Eosinophil % 1.5 % N 0-6 Basophil % 0.8 % N 0-2 Nucleated Red Blood Cells % 0 N Comp Metabolic Panel 12/03/2013 [facility] Sodium 138 mmol/L N 133-[address] [place] [address] [phone] Potassium 3.8 mmol/L N 3.7-5.6 Chloride 105 mmol/L N 101-111 Co2 Carbon Dioxide 24 mmol/L N 22-32 Anion Gap 9 mmol/L N 2-11 Glucose 113 mg/dL High 70-100 Blood Urea Nitrogen 17 mg/dL N 6-24 Creatinine 0.73 mg/dL N 0.51-0.95 BUN/Creatinine Ratio 23.3 High 8-20 Calcium 9.6 mg/dL N 8.6-10.3 Total Protein 7.0 g/dL N 6.4-8.9 Albumin 4.5 g/dL N 3.2-5.2 Globulin 2.5 g/dL N 2-4 Albumin/Globulin Ratio 1.8 N 1-3 Total Bilirubin 0.50 mg/dL N 0.2-1.0 Alkaline Phosphatase 86 U/L N 34-104 Alt 23 U/L N 7-52 Ast 21 U/L N 13-39 Egfr Non- 82.2 N >60 Egfr 105.7 N >60 48 Laboratory test 12/03/2013 [facility] CA 27-29 19.02 U/mL N 3.5-38.6 [address] [place] [address] [phone] CA 15-3 15 U/mL N <30 50 CBC Auto Diff 11/05/2013 [facility] White Blood 5.8 10^3/uL N 4.8-10.[address] [place] [address] [phone] Red Blood Count 4.51 10^6/uL N 4.0-5.4 Hemoglobin 13.4 g/dL N 12.0-16.0 Hematocrit 39 % N 35-47 Mean Corpuscular Volume 87 fL N 80-97 Mean Corpuscular Hemoglobin 30 pg N 27-31 Mean Corpuscular HGB Conc 34 g/dL N 31-36 Red Cell Distribution Width 13 % N 10.5-15 Platelet Count 230 10^3/uL N 150-450 Mean Platelet Volume 9 um3 N 7.4-10.4 Abs Neutrophils 3.4 10^3/uL N 1.5-7.7 Abs Lymphocytes 1.9 10^3/uL N 1.0-4.8 Abs Monocytes 0.4 10^3/uL N 0-0.8 Abs Eosinophils 0.1 10^3/uL N 0-0.6 Abs Basophils 0.1 10^3/uL N 0-0.2 Abs Nucleated RBC 0 10^3/uL N Granulocyte % 57.8 % N 38-83 Lymphocyte % 32.5 % N 25-47 Monocyte % 7.2 % N 1-9 Eosinophil % 1.6 % N 0-6 Basophil % 0.9 % N 0-2 Nucleated Red Blood Cells % 0 N Comp Metabolic Panel 11/05/2013 [facility] Sodium 138 mmol/L N 133-145 [address] [place] [address] [phone] Potassium 3.9 mmol/L N 3.7-5.6 Chloride 104 mmol/L N 101-111 Co2 Carbon Dioxide 26 mmol/L N 22-32 Anion Gap 8 mmol/L N 2-11 Glucose 80 mg/dL N 70-100 Blood Urea Nitrogen 17 mg/dL N 6-24 Creatinine 0.74 mg/dL N 0.51-0.95 BUN/Creatinine Ratio 23.0 High 8-20 Calcium 9.8 mg/dL N 8.6-10.3 Total Protein 7.2 g/dL N 6.4-8.9 Albumin 4.6 g/dL N 3.2-5.2 Globulin 2.6 g/dL N 2-4 Albumin/Globulin Ratio 1.8 N 1-3 Total Bilirubin 0.50 mg/dL N 0.2-1.0 Alkaline Phosphatase 79 U/L N 34-104 Alt 21 U/L N 7-52 Ast 19 U/L N 13-39 Egfr Non- 81.2 N >60 Egfr 104.4 N >60 51 Laboratory test 11/05/2013 [facility] CA 27-29 15.34 U/mL N 3.5-38.6 [address] [place] [address] [phone] CA 15-3 17 U/mL N <30 53 CBC Auto Diff 10/08/2013 [facility] White Blood 6.2 10^3/uL N 4.8-10.[address] [place] [address] [phone] Red Blood Count 4.37 10^6/uL N 4.0-5.4 Hemoglobin 13.2 g/dL N 12.0-16.0 Hematocrit 38 % N 35-47 Mean Corpuscular Volume 86 fL N 80-97 Mean Corpuscular Hemoglobin 30 pg N 27-31 Mean Corpuscular HGB Conc 35 g/dL N 31-36 Red Cell Distribution Width 13 % N 10.5-15 Platelet Count 223 10^3/uL N 150-450 Mean Platelet Volume 8 um3 N 7.4-10.4 Abs Neutrophils 4.1 10^3/uL N 1.5-7.7 Abs Lymphocytes 1.5 10^3/uL N 1.0-4.8 Abs Monocytes 0.4 10^3/uL N 0-0.8 Abs Eosinophils 0.1 10^3/uL N 0-0.6 Abs Basophils 0.1 10^3/uL N 0-0.2 Abs Nucleated RBC 0 10^3/uL N Granulocyte % 66.4 % N 38-83 Lymphocyte % 24.8 % Low 25-47 Monocyte % 6.6 % N 1-9 Eosinophil % 1.4 % N 0-6 Basophil % 0.8 % N 0-2 Nucleated Red Blood Cells % 0 N Comp Metabolic Panel 10/08/2013 [facility] Sodium 138 mmol/L N 133-[address] [place] [address] [phone] Potassium 3.7 mmol/L N 3.7-5.6 Chloride 103 mmol/L N 101-111 Co2 Carbon Dioxide 25 mmol/L N 22-32 Anion Gap 10 mmol/L N 2-11 Glucose 134 mg/dL High 70-100 Blood Urea Nitrogen 14 mg/dL N 6-24 Creatinine 0.72 mg/dL N 0.51-0.95 BUN/Creatinine Ratio 19.4 N 8-20 Calcium 9.4 mg/dL N 8.6-10.3 Total Protein 7.0 g/dL N 6.4-8.9 Albumin 4.6 g/dL N 3.2-5.2 Globulin 2.4 g/dL N 2-4 Albumin/Globulin Ratio 1.9 N 1-3 Total Bilirubin 0.60 mg/dL N 0.2-1.0 Alkaline Phosphatase 80 U/L N 34-104 Alt 15 U/L N 7-52 Ast 19 U/L N 13-39 Egfr Non- 83.8 N >60 Egfr 107.8 N >60 54 Laboratory test 10/08/2013 [facility] CA 27-29 21.63 U/mL N 3.5-38.6 55 finding [address] [place] [address] [phone] CA 15-3 15 U/mL N <30 56 Venous Blood Gas 09/05/2013 [facility] Venous Blood pH 7.40 N 7.33-7.43 57 [address] [place] [address] [phone] Venous Pco2 39 mmHg Low 41-51 Venous Po2 40 mmHg N 35-45 Venous O2 Saturation 73.5 % N 70-80 Venous Blood Base Excess -0.5 Low 0-4 58 Venous Bicarbonate Hco3 24.0 mmol/L N 24-28 Arterial Blood Gas 09/05/2013 [facility] PH Arterial 7.40 N 7.35-7.45 59 [address] [place] [address] [phone] Pco2 Arterial 39 mmHg N 35-45 Po2 Arterial 71 mmHg Low 80-100 Po2 Arterial Temp Correct (SEE NOTE) mmHg N 80-100 60 O2 Saturation Arterial 95.8 % N 95-98 Base Excess Arterial -0.5 N -2.0-2.0 61 Hco3 Arterial 24.4 mmol/L N 19-31 Venous Blood Gas 09/05/2013 [facility] Venous Blood pH 7.39 N 7.33-7.43 62 [address] [place] [address] [phone] Venous Pco2 41 mmHg N 41-51 Venous Po2 40 mmHg N 35-45 Venous O2 Saturation 73.8 % N 70-80 Venous Blood Base Excess -0.2 Low 0-4 63 Venous Bicarbonate Hco3 24.2 mmol/L N 24-28 Laboratory test finding 09/04/2013 [facility] Inr 0.87 N 0.85- 1.06 [address] [place] [address] [phone] Activated Partial Thrombo Time 29.6 seconds N 24.0-36.1 CBC No Diff 09/04/2013 [facility] White Blood 6.0 10^3/uL N 4.8-10.[address] [place] [address] [phone] Red Blood Count 4.73 10^6/uL N 4.0-5.4 Hemoglobin 14.2 g/dL N 12.0-16.0 Hematocrit 41 % N 35-47 Mean Corpuscular Volume 87 fL N 80-97 Mean Corpuscular Hemoglobin 30 pg N 27-31 Mean Corpuscular HGB Conc 35 g/dL N 31-36 Red Cell Distribution Width 13 % N 10.5-15 Platelet Count 205 10^3/uL N 150-450 Mean Platelet Volume 8 um3 N 7.4-10.4 Basic Metabolic Panel 09/04/2013 [facility] Sodium 138 mmol/L N 133-145 [address] [place] [address] [phone] Potassium 3.8 mmol/L N 3.7-5.6 Chloride 102 mmol/L N 101-111 Co2 Carbon Dioxide 27 mmol/L N 22-32 Anion Gap 9 mmol/L N 2-11 Glucose 91 mg/dL N 70-100 Blood Urea Nitrogen 14 mg/dL N 6-24 Creatinine 0.75 mg/dL N 0.51-0.95 BUN/Creatinine Ratio 18.7 N 8-20 Calcium 10.0 mg/dL N 8.6-10.3 Egfr Non- 79.9 N >60 Egfr 102.8 N >60 64 Laboratory test 08/27/2013 [facility] CA 27-29 24.30 U/mL N 3.5-38.6 65 finding [address] [place] [address] [phone] CA 15-3 15 U/mL N <30 66 Comp Metabolic Panel 08/27/2013 [facility] Sodium 141 mmol/L N 133-145 [address] [place] [address] [phone] Potassium 3.9 mmol/L N 3.7-5.6 Chloride 106 mmol/L N 101-111 Co2 Carbon Dioxide 27 mmol/L N 22-32 Anion Gap 8 mmol/L N 2-11 Glucose 91 mg/dL N 70-100 Blood Urea Nitrogen 15 mg/dL N 6-24 Creatinine 0.72 mg/dL N 0.51-0.95 BUN/Creatinine Ratio 20.8 High 8-20 Calcium 9.8 mg/dL N 8.6-10.3 Total Protein 6.8 g/dL N 6.4-8.9 Albumin 4.4 g/dL N 3.2-5.2 Globulin 2.4 g/dL N 2-4 Albumin/Globulin Ratio 1.8 N 1-3 Total Bilirubin 0.50 mg/dL N 0.2-1.0 Alkaline Phosphatase 86 U/L N 34-104 Alt 18 U/L N 7-52 Ast 19 U/L N 13-39 Egfr Non- 83.8 N >60 Egfr 107.8 N >60 67 CBC Auto Diff 08/27/2013 [facility] White Blood 5.8 10^3/uL N 4.8-10.[address] [place] [address] [phone] Red Blood Count 4.38 10^6/uL N 4.0-5.4 Hemoglobin 13.3 g/dL N 12.0-16.0 Hematocrit 38 % N 35-47 Mean Corpuscular Volume 86 fL N 80-97 Mean Corpuscular Hemoglobin 30 pg N 27-31 Mean Corpuscular HGB Conc 35 g/dL N 31-36 Red Cell Distribution Width 13 % N 10.5-15 Platelet Count 219 10^3/uL N 150-450 Mean Platelet Volume 9 um3 N 7.4-10.4 Abs Neutrophils 3.9 10^3/uL N 1.5-7.7 Abs Lymphocytes 1.3 10^3/uL N 1.0-4.8 Abs Monocytes 0.5 10^3/uL N 0-0.8 Abs Eosinophils 0.1 10^3/uL N 0-0.6 Abs Basophils 0.1 10^3/uL N 0-0.2 Abs Nucleated RBC 0.01 10^3/uL N Granulocyte % 67.4 % N 38-83 Lymphocyte % 22.0 % Low 25-47 Monocyte % 7.9 % N 1-9 Eosinophil % 1.5 % N 0-6 Basophil % 1.2 % N 0-2 Nucleated Red Blood Cells % 0.1 N Laboratory test 07/30/2013 [facility] CA 27-29 20.97 U/mL N 3.5-38.6 [address] [place] [address] [phone] CA 15-3 14 U/mL N <30 69 Vitamin D 1,25-Dihydroxy 64 pg/mL N 18-78 70 CBC Auto Diff 07/30/2013 [facility] White Blood 5.4 10^3/uL N 4.8-10.[address] [place] [address] [phone] Red Blood Count 4.43 10^6/uL N 4.0-5.4 Hemoglobin 13.1 g/dL N 12.0-16.0 Hematocrit 38 % N 35-47 Mean Corpuscular Volume 85 fL N 80-97 Mean Corpuscular Hemoglobin 30 pg N 27-31 Mean Corpuscular HGB Conc 35 g/dL N 31-36 Red Cell Distribution Width 13 % N 10.5-15 Platelet Count 200 10^3/uL N 150-450 Mean Platelet Volume 9 um3 N 7.4-10.4 Abs Neutrophils 3.4 10^3/uL N 1.5-7.7 Abs Lymphocytes 1.5 10^3/uL N 1.0-4.8 Abs Monocytes 0.4 10^3/uL N 0-0.8 Abs Eosinophils 0 10^3/uL N 0-0.6 Abs Basophils 0.1 10^3/uL N 0-0.2 Abs Nucleated RBC 0.01 10^3/uL N Granulocyte % 62.5 % N 38-83 Lymphocyte % 27.8 % N 25-47 Monocyte % 7.8 % N 1-9 Eosinophil % 0.9 % N 0-6 Basophil % 1.0 % N 0-2 Nucleated Red Blood Cells % 0.2 N Comp Metabolic Panel 07/30/2013 [facility] Sodium 139 mmol/L N 133-[address] [place] [address] [phone] Potassium 4.1 mmol/L N 3.7-5.6 Chloride 106 mmol/L N 101-111 Co2 Carbon Dioxide 26 mmol/L N 22-32 Anion Gap 7 mmol/L N 2-11 Glucose 90 mg/dL N 70-100 Blood Urea Nitrogen 13 mg/dL N 6-24 Creatinine 0.77 mg/dL N 0.51-0.95 BUN/Creatinine Ratio 16.9 N 8-20 Calcium 9.9 mg/dL N 8.6-10.3 Total Protein 7.4 g/dL N 6.4-8.9 Albumin 4.7 g/dL N 3.2-5.2 Globulin 2.7 g/dL N 2-4 Albumin/Globulin Ratio 1.7 N 1-3 Total Bilirubin 0.60 mg/dL N 0.2-1.0 Alkaline Phosphatase 82 U/L N 34-104 Alt 21 U/L N 7-52 Ast 21 U/L N 13-39 Egfr Non- 77.5 N >60 Egfr 99.7 N >60 71 1 Because ethnic data is not always readily available, this report includes an eGFR for both -Americans and non- Americans. The National Kidney Disease Education Program (NKDEP) does not endorse the use of the MDRD equation for patients that are not between the ages of 18 and 70, are , have extremes of body size, muscle mass, or nutritional status, or are non- or non-. According to the National Kidney Foundation, irrespective of diagnosis, the stage of the disease is based on the level of kidney function: Stage Description GFR(mL/min/1.73 m(2)) 1 Kidney damage with normal or decreased GFR 90 2 Kidney damage with mild decrease in GFR 60-89 3 Moderate decrease in GFR 30-59 4 Severe decrease in GFR 15-29 5 Kidney failure <15 (or dialysis) 2 Desirable: <150 Borderline High: 150-199 High: 200-499 Very High: >500 3 Desirable: <200 Borderline High: 200-239 High: >239 4 Low: <40 Desirable: 40-60 High: >60 5 Desirable: <100 Near Optimal: 100-129 Borderline High: 130-159 High: 160-189 Very High: >189 6 Because ethnic data is not always readily available, this report includes an eGFR for both -Americans and non- Americans. The National Kidney Disease Education Program (NKDEP) does not endorse the use of the MDRD equation for patients that are not between the ages of 18 and 70, are , have extremes of body size, muscle mass, or nutritional status, or are non- or non-. According to the National Kidney Foundation, irrespective of diagnosis, the stage of the disease is based on the level of kidney function: Stage Description GFR(mL/min/1.73 m(2)) 1 Kidney damage with normal or decreased GFR 90 2 Kidney damage with mild decrease in GFR 60-89 3 Moderate decrease in GFR 30-59 4 Severe decrease in GFR 15-29 5 Kidney failure <15 (or dialysis) 7 ADDITIONAL INFORMATION The testing method is an electrochemiluminescence assay manufactured by [employer] and performed on the Modular or Chris system. Values obtained with different assay methods or kits may be different and cannot be used interchangeably. Test results cannot be interpreted as absolute evidence for the presence or absence of malignant disease. Test Performed by: [facility] [address] [place] [address] 8 ADDITIONAL INFORMATION The testing method is a chemiluminometric immunoassay manufactured by [employer] and performed on the [employer]. Values obtained with different assay methods or kits may be different and cannot be used interchangeably. Test results cannot be interpreted as absolute evidence for the presence or absence of malignant disease. Test Performed by: [address] [id number] 9 Because ethnic data is not always readily available, this report includes an eGFR for both -Americans and non- Americans. The National Kidney Disease Education Program (NKDEP) does not endorse the use of the MDRD equation for patients that are not between the ages of 18 and 70, are , have extremes of body size, muscle mass, or nutritional status, or are non- or non-. According to the National Kidney Foundation, irrespective of diagnosis, the stage of the disease is based on the level of kidney function: Stage Description GFR(mL/min/1.73 m(2)) 1 Kidney damage with normal or decreased GFR 90 2 Kidney damage with mild decrease in GFR 60-89 3 Moderate decrease in GFR 30-59 4 Severe decrease in GFR 15-29 5 Kidney failure <15 (or dialysis) 10 Desirable: <150 Borderline High: 150-199 High: 200-499 Very High: >500 11 Desirable: <200 Borderline High: 200-239 High: >239 12 Low: <40 Desirable: 40-60 High: >60 13 Desirable: <100 Near Optimal: 100-129 Borderline High: 130-159 High: 160-189 Very High: >189 14 Desirable <150 Borderline high 150-199 High 200-499 Very High >500 15 Desirable <200 Borderline high 200-239 High >239 16 Low <40 Desirable: 40-60 High: >60 17 Desirable: <100 mg/dL Near Optimal: 100-129 mg/dL Borderline High: 130-159 mg/dL High: 160-189 mg/dL Very High: >189 mg/dL 18 Because ethnic data is not always readily available, this report includes an eGFR for both -Americans and non- Americans. The National Kidney Disease Education Program (NKDEP) does not endorse the use of the MDRD equation for patients that are not between the ages of 18 and 70, are , have extremes of body size, muscle mass, or nutritional status, or are non- or non-. According to the National Kidney Foundation, irrespective of diagnosis, the stage of the disease is based on the level of kidney function: Stage Description GFR(mL/min/1.73 m(2)) 1 Kidney damage with normal or decreased GFR 90 2 Kidney damage with mild decrease in GFR 60-89 3 Moderate decrease in GFR 30-59 4 Severe decrease in GFR 15-29 5 Kidney failure <15 (or dialysis) 19 Assay by Chemiluminescence microparticle immunoassay on the IRL [employer]. Values obtained with different methods or kits cannot be used interchangeably for patient monitoring. Results cannot be interpreted as absolute evidence of the presence or absence of malignancy. The test is not interpretable in . 20 ADDITIONAL INFORMATION The testing method is an electrochemiluminescence assay manufactured by [employer] and performed on the Ion Core or Chris system. Values obtained with different assay methods or kits may be different and cannot be used interchangeably. Test results cannot be interpreted as absolute evidence for the presence or absence of malignant disease. Test Performed by: [address] [address] 21 Desirable <150 Borderline high 150-199 High 200-499 Very High >500 22 Desirable <200 Borderline high 200-239 High >239 23 Low <40 Desirable: 40-60 High: >60 24 Desirable: <100 mg/dL Near Optimal: 100-129 mg/dL Borderline High: 130-159 mg/dL High: 160-189 mg/dL Very High: >189 mg/dL 25 FASTING 10 HOUR 26 Because ethnic data is not always readily available, this report includes an eGFR for both -Americans and non- Americans. The National Kidney Disease Education Program (NKDEP) does not endorse the use of the MDRD equation for patients that are not between the ages of 18 and 70, are , have extremes of body size, muscle mass, or nutritional status, or are non- or non-. According to the National Kidney Foundation, irrespective of diagnosis, the stage of the disease is based on the level of kidney function: Stage Description GFR(mL/min/1.73 m(2)) 1 Kidney damage with normal or decreased GFR 90 2 Kidney damage with mild decrease in GFR 60-89 3 Moderate decrease in GFR 30-59 4 Severe decrease in GFR 15-29 5 Kidney failure <15 (or dialysis) 27 ADDITIONAL INFORMATION The testing method is an electrochemiluminescence assay manufactured by [employer] and performed on the Modular or Chris system. Values obtained with different assay methods or kits may be different and cannot be used interchangeably. Test results cannot be interpreted as absolute evidence for the presence or absence of malignant disease. Test Performed by: [address] [address] Flooring Machine Operator: Satish Cotton II, M.D., Ph.D. 28 Assay by Chemiluminescence microparticle immunoassay on the [employer] Lightspeedaur. Values obtained with different methods or kits cannot be used interchangeably for patient monitoring. Results cannot be interpreted as absolute evidence of the presence or absence of malignancy. The test is not interpretable in . 29 Desirable <150 Borderline high 150-199 High 200-499 Very High >500 30 Desirable <200 Borderline high 200-239 High >239 31 Low <40 Desirable: 40-60 High: >60 32 Desirable: <100 mg/dL Near Optimal: 100-129 mg/dL Borderline High: 130-159 mg/dL High: 160-189 mg/dL Very High: >189 mg/dL 33 SEE RESULT BELOW Name: LINDA DAVIS : [address]: Haylie Walden MD Acct: [id number] Unit: [id number] AGE: 59 Location: [facility] Re06/30/15 SEX: F Status: REG REF SPEC: [id number] THOMAS: 06/30/15-[address] [facility] [address]: Haylie Walden MD REQ: [id number] RECD: 06/30/15 STATUS: COMP _ SOURCE: THROAT SPDESC: ORDERED: Throat Culture COMMENTS: [id number] Procedure Result Reported Site Throat Culture Final 07/02/15- 1037 ML Organism 1 NORMAL PATY Quantity 3+ Throat cultures are clinically indicated to detect the presence of group A strep, arcanobacterium and yeast. In certain cases, predominating organisms will be reported. * ML - [facility] . END OF REPORT * ML=Testing performed at Main Lab DEPARTMENT OF PATHOLOGY, [address] [place] [address] Edgardo Lynne M.D. Director [facility] # [id number] 34 PT HAD HALF/HALF IN HER COFFEE 35 Desirable <150 Borderline high 150-199 High 200-499 Very High >500 36 Desirable <200 Borderline high 200-239 High >239 37 Low <40 Desirable: 40-60 High: >60 38 Desirable: <100 mg/dL Near Optimal: 100-129 mg/dL Borderline High: 130-159 mg/dL High: 160-189 mg/dL Very High: >189 mg/dL 39 PT HAD HALF/HALF IN HER COFFEE 40 PT HAD HALF/HALF IN HER COFFEE 41 Potassium reference range changed effective 01/05/14 42 Because ethnic data is not always readily available, this report includes an eGFR for both -Americans and non- Americans. The National Kidney Disease Education Program (NKDEP) does not endorse the use of the MDRD equation for patients that are not between the ages of 18 and 70, are , have extremes of body size, muscle mass, or nutritional status, or are non- or non-. According to the National Kidney Foundation, irrespective of diagnosis, the stage of the disease is based on the level of kidney function: Stage Description GFR(mL/min/1.73 m(2)) 1 Kidney damage with normal or decreased GFR 90 2 Kidney damage with mild decrease in GFR 60-89 3 Moderate decrease in GFR 30-59 4 Severe decrease in GFR 15-29 5 Kidney failure <15 (or dialysis) 43 Assay by Chemiluminescence microparticle immunoassay on the [employer] Lightspeedaur. Values obtained with different methods or kits cannot be used interchangeably for patient monitoring. Results cannot be interpreted as absolute evidence of the presence or absence of malignancy. The test is not interpretable in . 44 ADDITIONAL INFORMATION The testing method is an electrochemiluminescence assay manufactured by [employer] and performed on the Modular or Chris system. Values obtained with different assay methods or kits may be different and cannot be used interchangeably. Test results cannot be interpreted as absolute evidence for the presence or absence of malignant disease. Test Performed by: [place] [address] Flooring Machine Operator: Alexandro Mason M.D. 45 Because ethnic data is not always readily available, this report includes an eGFR for both -Americans and non- Americans. The National Kidney Disease Education Program (NKDEP) does not endorse the use of the MDRD equation for patients that are not between the ages of 18 and 70, are , have extremes of body size, muscle mass, or nutritional status, or are non- or non-. According to the National Kidney Foundation, irrespective of diagnosis, the stage of the disease is based on the level of kidney function: Stage Description GFR(mL/min/1.73 m(2)) 1 Kidney damage with normal or decreased GFR 90 2 Kidney damage with mild decrease in GFR 60-89 3 Moderate decrease in GFR 30-59 4 Severe decrease in GFR 15-29 5 Kidney failure <15 (or dialysis) 46 Assay by Chemiluminescence microparticle immunoassay on the [employer] Centaur. Values obtained with different methods or kits cannot be used interchangeably for patient monitoring. Results cannot be interpreted as absolute evidence of the presence or absence of malignancy. The test is not interpretable in . 47 ADDITIONAL INFORMATION The testing method is an electrochemiluminescence assay manufactured by [employer] and performed on the Modular or Chris system. Values obtained with different assay methods or kits may be different and cannot be used interchangeably. Test results cannot be interpreted as absolute evidence for the presence or absence of malignant disease. Test Performed by: [place] [address] Flooring Machine Operator: Alexandro Mason M.D. 48 Because ethnic data is not always readily available, this report includes an eGFR for both -Americans and non- Americans. The National Kidney Disease Education Program (NKDEP) does not endorse the use of the MDRD equation for patients that are not between the ages of 18 and 70, are , have extremes of body size, muscle mass, or nutritional status, or are non- or non-. According to the National Kidney Foundation, irrespective of diagnosis, the stage of the disease is based on the level of kidney function: Stage Description GFR(mL/min/1.73 m(2)) 1 Kidney damage with normal or decreased GFR 90 2 Kidney damage with mild decrease in GFR 60-89 3 Moderate decrease in GFR 30-59 4 Severe decrease in GFR 15-29 5 Kidney failure <15 (or dialysis) 49 Assay by Chemiluminescence microparticle immunoassay on the [employer] Centaur. Values obtained with different methods or kits cannot be used interchangeably for patient monitoring. Results cannot be interpreted as absolute evidence of the presence or absence of malignancy. The test is not interpretable in . 50 ADDITIONAL INFORMATION The testing method is an electrochemiluminescence assay manufactured by [employer] and performed on the Modular or Chris system. Values obtained with different assay methods or kits may be different and cannot be used interchangeably. Test results cannot be interpreted as absolute evidence for the presence or absence of malignant disease. Test Performed by: [place] [address] Flooring Machine Operator: Alexandro Mason M.D. 51 Because ethnic data is not always readily available, this report includes an eGFR for both -Americans and non- Americans. The National Kidney Disease Education Program (NKDEP) does not endorse the use of the MDRD equation for patients that are not between the ages of 18 and 70, are , have extremes of body size, muscle mass, or nutritional status, or are non- or non-. According to the National Kidney Foundation, irrespective of diagnosis, the stage of the disease is based on the level of kidney function: Stage Description GFR(mL/min/1.73 m(2)) 1 Kidney damage with normal or decreased GFR 90 2 Kidney damage with mild decrease in GFR 60-89 3 Moderate decrease in GFR 30-59 4 Severe decrease in GFR 15-29 5 Kidney failure <15 (or dialysis) 52 Assay by Chemiluminescence microparticle immunoassay on the IRL [employer]. Values obtained with different methods or kits cannot be used interchangeably for patient monitoring. Results cannot be interpreted as absolute evidence of the presence or absence of malignancy. The test is not interpretable in . 53 The testing method is an electrochemiluminescence assay manufactured by [employer] and performed on the Modular or Chris system. Values obtained with different assay methods or kits may be different and cannot be used interchangeably. Test results cannot be interpreted as absolute evidence for the presence or absence of malignant disease. Test Performed by: [place] [address] Flooring Machine Operator: Nitesh Nickerson III, M.D. 54 Because ethnic data is not always readily available, this report includes an eGFR for both -Americans and non- Americans. The National Kidney Disease Education Program (NKDEP) does not endorse the use of the MDRD equation for patients that are not between the ages of 18 and 70, are , have extremes of body size, muscle mass, or nutritional status, or are non- or non-. According to the National Kidney Foundation, irrespective of diagnosis, the stage of the disease is based on the level of kidney function: Stage Description GFR(mL/min/1.73 m(2)) 1 Kidney damage with normal or decreased GFR 90 2 Kidney damage with mild decrease in GFR 60-89 3 Moderate decrease in GFR 30-59 4 Severe decrease in GFR 15-29 5 Kidney failure <15 (or dialysis) 55 Assay by Chemiluminescence microparticle immunoassay on the [employer] Centaur. Values obtained with different methods or kits cannot be used interchangeably for patient monitoring. Results cannot be interpreted as absolute evidence of the presence or absence of malignancy. The test is not interpretable in . 56 The testing method is an electrochemiluminescence assay manufactured by [employer] and performed on the Modular or Chris system. Values obtained with different assay methods or kits may be different and cannot be used interchangeably. Test results cannot be interpreted as absolute evidence for the presence or absence of malignant disease. Test Performed by: [place] [address] Flooring Machine Operator: Nitesh Nickerson III, M.D. 57 CALL RESULTS TO 4592 --~RIGHT ATRIUM 58 Reference ranges based on room air. 59 CENTRAL AORTIOC ANTERAL BLOOD GAS~ CALL RESULTS TO 4592 60 Verbal to TWAN/FRESH FOOD MANAGER by [id number] at 1412 on 09/05/13. Results read back accurately. 61 Reference ranges based on room air. 62 CALL RESULTS TO 4592 ---~PULMONARY ART. 63 Reference ranges based on room air. 64 Because ethnic data is not always readily available, this report includes an eGFR for both -Americans and non- Americans. The National Kidney Disease Education Program (NKDEP) does not endorse the use of the MDRD equation for patients that are not between the ages of 18 and 70, are , have extremes of body size, muscle mass, or nutritional status, or are non- or non-. According to the National Kidney Foundation, irrespective of diagnosis, the stage of the disease is based on the level of kidney function: Stage Description GFR(mL/min/1.73 m(2)) 1 Kidney damage with normal or decreased GFR 90 2 Kidney damage with mild decrease in GFR 60-89 3 Moderate decrease in GFR 30-59 4 Severe decrease in GFR 15-29 5 Kidney failure <15 (or dialysis) 65 Assay by Chemiluminescence microparticle immunoassay on the [employer] Centaur. Values obtained with different methods or kits cannot be used interchangeably for patient monitoring. Results cannot be interpreted as absolute evidence of the presence or absence of malignancy. The test is not interpretable in . 66 The testing method is an electrochemiluminescence assay manufactured by [employer] and performed on the Modular or Chris system. Values obtained with different assay methods or kits may be different and cannot be used interchangeably. Test results cannot be interpreted as absolute evidence for the presence or absence of malignant disease. Test Performed by: [place] [address] Flooring Machine Operator: Nitesh Nickerson III, M.D. 67 Because ethnic data is not always readily available, this report includes an eGFR for both -Americans and non- Americans. The National Kidney Disease Education Program (NKDEP) does not endorse the use of the MDRD equation for patients that are not between the ages of 18 and 70, are , have extremes of body size, muscle mass, or nutritional status, or are non- or non-. According to the National Kidney Foundation, irrespective of diagnosis, the stage of the disease is based on the level of kidney function: Stage Description GFR(mL/min/1.73 m(2)) 1 Kidney damage with normal or decreased GFR 90 2 Kidney damage with mild decrease in GFR 60-89 3 Moderate decrease in GFR 30-59 4 Severe decrease in GFR 15-29 5 Kidney failure <15 (or dialysis) 68 Assay by Chemiluminescence microparticle immunoassay on the [employer]aur. Values obtained with different methods or kits cannot be used interchangeably for patient monitoring. Results cannot be interpreted as absolute evidence of the presence or absence of malignancy. The test is not interpretable in . 69 The testing method is an electrochemiluminescence assay manufactured by [employer] and performed on the Modular or Chris system. Values obtained with different assay methods or kits may be different and cannot be used interchangeably. Test results cannot be interpreted as absolute evidence for the presence or absence of malignant disease. Test Performed by: [facility] [address] [place] [address] Flooring Machine Operator: Nitesh Nickerson III, M.D. 70 Test Performed by: [facility] [address] [place] [address] Flooring Machine Operator: Nitesh Nickerson III, M.D. 71 Because ethnic data is not always readily available, this report includes an eGFR for both -Americans and non- Americans. The National Kidney Disease Education Program (NKDEP) does not endorse the use of the MDRD equation for patients that are not between the ages of 18 and 70, are , have extremes of body size, muscle mass, or nutritional status, or are non- or non-. According to the National Kidney Foundation, irrespective of diagnosis, the stage of the disease is based on the level of kidney function: Stage Description GFR(mL/min/1.73 m(2)) 1 Kidney damage with normal or decreased GFR 90 2 Kidney damage with mild decrease in GFR 60-89 3 Moderate decrease in GFR 30-59 4 Severe decrease in GFR 15-29 5 Kidney failure <15 (or dialysis) Procedures Date Code Description Status 09/21/2017 26146 ECHO Transthoracic, Real-Time 2D With Doppler And Completed Color Flow 09/21/2017 56908 ECHO Transthoracic, Real-Time 2D With Doppler And Completed Color Flow 09/14/2017 37907 EKG Tracing & Interpretation Completed 06/08/2016 45648 Sleep Study Unattended,HRT Rate,Oxygen Sat,Resp Completed Effort/Airflow 03/30/2016 [id number] Bone Mineral Density Test Completed 03/06/2016 [id number] Mammogram Completed 10/13/2015 50446 Holter Monitor Review (24 hr)dr peraza & selenep only Completed 10/12/2015 87187 ECG Monitor/Recording W/Visual Superimposition Completed Scanning 10/08/2015 60667 EKG Tracing & Interpretation Completed 03/06/2015 [id number] Diabetic Retinal Eye Exam Completed 09/12/2014 18809 EKG Tracing & Interpretation Completed 09/05/2013 47574 RT & lt Cath W/Injx HRT Art&L Ventr Img S&I Completed 09/04/2013 98476 EKG Tracing & Interpretation Completed 06/22/2007 [id number] Colonoscopy Completed Encounters Type Date Location Provider Dx Diagnosis Office Visit 06/05/2018 [facility] Zeyad [facility], 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 hand M25.512 Pain in left shoulder M25.522 Pain in left elbow M25.532 Pain in left wrist F41.1 Generalized anxiety disorder Office Visit 03/23/2018 10:40a [facility] Erika Loaiza F41.1 Generalized Medicine - N.P. anxiety disorder [place] Office Visit 03/09/2018 10:20a [facility] Erika Loaiza F41.1 Generalized Medicine - N.P. anxiety disorder [place] Office Visit 02/23/2018 10:20a [facility] Erika Loaiza, F41.9 Anxiety disorder, Medicine - N.P. unspecified [place] Office Visit 02/09/2018 11:00a [facility] Erika Loaiza F41.1 Generalized Medicine - N.P. 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 disorder Office Visit 07/17/2017 9:20a [facility] Z51.11 Encounter for [facility] Roxanne Bhakta M.D. 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 unspecified G47.00 Insomnia, unspecified R07.9 Chest pain, unspecified Office Visit 03/30/2017 8:50a [facility] Gladys Delgado, Z00.00 Encntr for Medicine - M.D. general adult [place] medical exam w/o abnormal findings Z23 Encounter for immunization E78.5 Hyperlipidemia, unspecified K21.9 Gastro-esophageal reflux disease without esophagitis Office Visit 06/29/2016 9:15a [facility] Val Ruiz, R06.83 [facility] J45.909 Unspecified asthma, uncomplicated Office Visit 06/08/2016 9:45a Pul[facility] And Val J98.4 Other disorders Sleep Services Of MD Joseph of lung [facility] R06.83 Snoring J45.909 Unspecified asthma, uncomplicated R40.0 Somnolence Office Visit 03/23/2016 9:10a [facility] Gladys Delgado, Z00.00 Encntr for Medicine - M.D. general adult [place] medical exam w/o abnormal findings Z13.820 Encounter for screening for osteoporosis J84.112 Idiopathic pulmonary fibrosis Z23 Encounter for immunization K21.9 Gastro-esophageal reflux disease without esophagitis E78.5 Hyperlipidemia, unspecified Z11.59 Encounter for screening for other viral diseases Z13.1 Encounter for screening for diabetes mellitus Office Visit 10/08/2015 1:40p [facility] Haylie Walden, R00.0 Tachycardia, Medicine M.D. unspecified Office Visit 09/03/2015 3:40p [facility] Haylie Walden F43.21 Adjustment disorder Medicine M.D. with depressed mood Z82.49 Family hx of ischem heart dis and oth dis of the circ sys Office Visit 06/30/2015 3:20p [facility] Haylie Walden, J02.9 Acute pharyngitis, Medicine M.D. unspecified F43.21 Adjustment disorder with depressed mood J01.90 Acute sinusitis, unspecified Office Visit 04/30/2015 10:00a [facility] Haylie Walden, F32.9 Major depressive Medicine M.D. disorder, single episode, unspecified K21.9 Gastro-esophageal reflux disease without esophagitis S16.1xxA Strain of muscle, fascia and tendon at neck level, init Office Visit 03/10/2015 4:00p [facility] Haylie Walden, J01.90 Acute sinusitis, Medicine M.D. unspecified M54.6 Pain in thoracic spine K21.9 Gastro-esophageal reflux disease without esophagitis Office Visit 02/17/2015 10:40a [facility] Haylie Walden, J01.90 Acute sinusitis, Medicine M.D. unspecified F43.21 Adjustment disorder with depressed mood Office Visit 01/06/2015 11:20a [facility] Haylie Walden F43.21 Adjustment Medicine M.D. disorder with depressed mood Office Visit 12/02/2014 11:00a [facility] Haylie Walden, F43.21 Adjustment Medicine M.D. disorder with depressed mood Office Visit 11/11/2014 11:40a [facility] Haylie Walden, 311 Depressive Medicine M.D. Disorder Not Elsewhere Spec Office Visit 10/21/2014 8:40a [facility] Haylie Walden, 311 Depressive Medicine M.D. Disorder Not Elsewhere Spec Office Visit 09/12/2014 2:30p [facility] Carole Tran, 786.50 Pain Chest Unspec Of Yoga Coordinator Bernie 530.81 Esophageal Reflux Office Visit 04/03/2014 10:20a [facility] Haylie Walden, 311 Depressive Medicine M.D. Disorder Not Elsewhere Spec Office Visit 02/14/2014 11:40a [facility] Haylie Walden, 461.1 Sinusitis Acute Medicine M.D. Frontal Office Visit 12/31/2013 8:40a [facility] Haylie Walden, 311 Depressive Medicine M.D. Disorder Not Elsewhere Spec 786.05 Shortness Of Breath 246.8 Thyroid Disorders Other Spec Office Visit 10/29/2013 11:00a [facility] Haylie Walden, 311 Depressive Medicine M.D. Disorder Not Elsewhere Spec 174.0 Malignant Neoplasm Female Breast Nipple [facility] Office Visit 09/20/2013 [place] Carole Tran, 786.50 Pain Chest Unspec 1:30p [facility] Office Visit 09/18/2013 Cynthia Guerra, V58.41 Postoperative Wound 3:30p [facility], FAC, Closure Encounter [facility] AT [facility] Office Visit 09/11/2013 ANTON Braga V49.9 Limb Problems & 2:00p Cardiology Other Problems Unspec E879.0 Cardiac Catheterization Later Complication Office Visit 09/04/2013 9:15a [place] [facility] Carole Tran, 786.50 Pain Chest Of Yoga Coordinator Hector.Sybil Unspec 516.31 Idiopathic Pulmonary Fibrosis Office Visit 09/03/2013 9:40a [facility] Haylie Walden, 311 Depressive Medicine M.D. Disorder Not Elsewhere Spec Office Visit 07/30/2013 1:00p [facility] Haylie Walden, 174.0 Malignant Medicine M.D. Neoplasm Female Breast Nipple & Areola 420.90 Pericarditis Acute Unspec 272.4 Hyperlipidemia Other Unspec 311 Depressive Disorder Not Elsewhere Spec Plan of Treatment Future Appointment(s):06/26/2018 1:30 pm - Zeyad Medina MD at [facility]04/03/2019 8:40 am - Erika Loaiza N.P. at [facility] Internal Yltpxbng58/22/2019 - Erika Loaiza N.P.J20.9 Acute bronchitis, unspecifiedNew Medication:Azithromycin 250 mg - two tabs day one, one daily till gonePrednisone 10 mg - 4 tablets by mouth for 4 days 3 tablets by mouth for 4 days 2 tablets by mouth for 4 days 1 tablet by mouth for 4 daysTylenol With Codeine #3 300-30 mg - 1 tablet by mouth every 8 hours as needed coughComments: For your bronchitis: I have sent a prescription to the pharmacy for Azithromycin. Take 2 tablets thefirst day then 1 tablet daily until they are gone for a total of 5 days. The medicine stays in your system for an additional 5 days. I sent in a prescription to the pharmacy for Prednisone 10 mg. Take 4 tablets for 4 days, 3 tablets for 4 days, 2 tablets for 4 days, and then 1 tablet for 4 days. To help quiet your cough I prescribed Tylenol with Codeine. You may take 1 every 8 hours as needed.Continue to use your nebulizer.R21 Rash and other nonspecific skin eruptionComments:For your continued skin lesions I have referred you to Dr Dudley.Referral:Shannan Dudley MD, Dermatology
[2018-07-08 10:39] VITALS: BP 136/83
--- NOTE | 2018-07-08 11:40 | UC ---
Respiratory Complaint HPI - HPI Summary HPI Summary: 62-year-old woman comes in with a chief complaint of fever cough chest congestion and right-sided splinting chest pain. Been going on about 3 days. 3 weeks ago patient had similar symptoms without the chest pain was treated with Nikita azithromycin and prednisone and Tylenol No. 3 with successful resolution of symptoms. She got completely better until 3 days ago when the symptoms started. Patient has a history of lung cancer he's had surgery on the right side of her chest where the pain is. She also has had a pulmonary embolus about 20 years ago. She was treated with Coumadin at that time and is no longer on any blood thinners other than aspirin. Denies any genetic hypercoagulability. Patient reports a fever of 101 last evening. Denies any calf pain or swelling. No shingles like rash on the right side of the chest. Patient states she does not feel this pain is similar to her pulmonary embolus. - History of Current Complaint Chief Complaint: UCRespiratory Stated Complaint: COUGH Time Seen by Provider: 07/08/18 10:58 Hx Last Menstrual Period: 1998 Pain Intensity: 10 - Allergies/Home Medications Allergies/Adverse Reactions: Allergies Allergy/AdvReac Type Severity Reaction Status Date / Time cephalexin [From Keflex] Allergy Intermediate Hives Verified 05/29/18 10:19 venlafaxine [From Effexor] Allergy made pt Verified 05/29/18 10:19 feel worse fentanyl AdvReac Severe Nausea And Verified 05/29/18 10:19 Vomiting meperidine [From Demerol] AdvReac Severe Nausea And Verified 05/29/18 10:19 Vomiting morphine AdvReac Severe Nausea And Verified 05/29/18 10:19 Vomiting PMH/Surg Hx/FS Hx/Imm Hx Previously Healthy: Yes Other Respiratory History: LUNG CA - Surgical History Surgical History: Yes Surgery Procedure, Year, and Place: mastectomy right with reconstruction, CHOLECYSTECTOMY, apppendectomy, tonsillectomy,hysterectomy Partial,. lung biopsy X2,left arm r/t trauma, right knee, heart cath no stentsX2, fx left wrist and radial head-h/o having plate & screws, left arm -Radial head replacement, ulnar bone shortening, plate + screws removed-THYROID BIOPSY-PORT FOR CHEMO PUT IN AND TAKEN OUT - Family History Known Family History: Positive: Unknown, Other - positive FMH strep throat - Social History Alcohol Use: Rare Substance Use Type: None Smoking Status (MU): Never Smoked Tobacco - Immunization History Most Recent Influenza Vaccination: [id number] Review of Systems All Other Systems Reviewed And Are Negative: Yes Constitutional: Positive: Fever Skin: Positive: Negative Eyes: Positive: Negative ENT: Positive: Negative Respiratory: Positive: Other - SEE HPI Cardiovascular: Positive: Chest Pain Gastrointestinal: Positive: Negative Motor: Positive: Negative Neurovascular: Positive: Negative Musculoskeletal: Positive: Negative. Negative: Calf Tenderness, Edema Neurological: Positive: Negative Psychological: Positive: Negative Is Patient Immunocompromised?: No Physical Exam Triage Information Reviewed: Yes Appearance: Well-Appearing, No Pain Distress, Well-Nourished Vital Signs: Initial Vital Signs Temp 98.8 F 07/08/18 10:23 Pulse 104 07/08/18 10:23 Resp 18 07/08/18 10:23 BP 136/83 07/08/18 10:23 Pulse Ox 98 07/08/18 10:23 Vital Signs Reviewed: Yes Eye Exam: Normal Eyes: Positive: Conjunctiva Clear ENT: Positive: Pharynx normal, TMs normal Neck exam: Normal Neck: Positive: Supple, Nontender Respiratory: Positive: Lungs clear, Normal breath sounds, No respiratory distress, Other: - RT LOWER RIBS TENDER TO PALPATION Cardiovascular: Positive: RRR Abdominal Exam: Normal Abdomen Description: Positive: Nontender, Soft Musculoskeletal Exam: Normal Musculoskeletal: Positive: Strength Intact, ROM Intact, No Edema, Other: - NO CALF TENDERNESS Neurological Exam: Normal Neurological: Positive: Alert, Muscle Tone Normal Psychological Exam: Normal Psychological: Positive: Age Appropriate Behavior Skin Exam: Normal Respiratory Course/Dx - Course Course Of Treatment: Patient Name: LIZA WHITING Medical Record#: [id number] Ordering Physician: Ad Peace NP Acct.#: [id number] : 1955 Age: 62 Sex: F Location: [facility] Exam Date: 07/08/18 1026 ADM Status: REG ER Order Information: CHEST PA LAT 2 VWS Accession Number: [id number] CPT: 64210 INDICATION: Fever and cough in a patient with a history of lung cancer and breast cancer COMPARISON: Most recent relevant imaging is CT dated December 15, 2017 TECHNIQUE: PA and lateral views of the chest were obtained. FINDINGS: Again seen are surgical clips overlying the right axilla, right chest wall and right hemithorax The heart and mediastinum are normal in size and contour. There are 2 small subcentimeter nodules overlying the right lower lung that appear to correspond to stable density seen adjacent to the fissure on prior CT imaging dated December 15, 2017 and on January 30, 2017. There are no definite new large pulmonary nodules or masses. Visualized bones are normal for the patient's age. There is no radiographic evidence of free air beneath the diaphragm IMPRESSION: 1. AT THE RIGHT LOWER LUNG THERE ARE 2 SMALL PULMONARY NODULES THAT APPEAR TO CORRESPOND TO STABLE NODULES SEEN ON PRIOR CT IMAGES FAR BACK JANUARY 30, 2017. 2. THERE IS NO RADIOGRAPHICALLY APPARENT ACUTE CARDIOPULMONARY ABNORMALITY. <Electronically signed by Matthew Valdez MD in OV> 07/08/18 1100 I discussed the chest x-ray results with the patient. Also reviewed the recent CT of her chest. There is no infiltrate on the chest x-ray however because the patient is high risk and she's had a fever we'll plan to treat with antibiotics. Because the patient recently was on a azithromycin the plan is to treat with a combination beta-lactam with doxycycline. I discussed treatment with a fluoroquinolone however because of the risks The patient declined. She recently been on a azithromycin, doxycycline was chosen. Patient reports having been on Augmentin in the past. We discussed that we have not ruled out a pulmonary embolus. Patient does not have any calf pain or calf tenderness. She reports that when she had a pulmonary embolus the pain was different. We discussed that to get evaluation for pulmonary embolus should have to go the emergency department for either a d- dimer and or a CTA of the chest. At this time the patient does not believe this is a pulmonary embolus and prefers to be treated for infection and then follow up with her physician. I did let her know that if anything got worse or any questions concern she should get further evaluation in the emergency department. - Differential Dx/Diagnosis Provider Diagnosis: Bronchitis, Fever, Chest pain made worse by breathing Discharge - Sign-Out/Discharge Documenting (check all that apply): Patient Departure All imaging exams completed and their final reports reviewed: Yes - Discharge Plan Condition: Stable Disposition: HOME Prescriptions: Acetaminop/Codeine 30 MG TAB* [Tylenol/Codeine 30 MG TAB*] 1 tab PO Q4H PRN #30 tab MDD 6 PRN Reason: Pain Amoxicillin/Clavulanate TAB* [Augmentin TAB 875*] 875 mg PO BID #20 tab DOXYcycline CAP(*) [DOXYcycline 100MG CAP(*)] 100 mg PO BID #20 cap predniSONE TAB* [Deltasone 20 MG TAB*] 0 mg PO DAILY #12 tab Patient Education Materials: Chest Pain (ED), Fever in Adults (ED), Acute Bronchitis (ED) Referrals: Erika Loaiza NP [Primary Care Provider] - Sangita Bhakta MD [Medical Doctor] - Additional Instructions: FOLLOW UP WITH YOUR DOCTOR. GO TO THE EMERGENCY DEPARTMENT IF YOUR CONDITION WORSENS OR ANY QUESTIONS OR CONCERNS. - Billing Disposition and Condition Condition: STABLE Disposition: Home
== END 2018-07-08 11:50 | disposition home or self-care (01) ==
LOC: UCEAST 09:58
DX: J40 Bronchitis, not specified as acute or chronic (principal); R50.9 Fever, unspecified; R07.1 Chest pain on breathing; R91.8 Other nonspecific abnormal finding of lung field; Z85.118 Personal history of other malignant neoplasm of bronchus and lung; Z88.1 Allergy status to other antibiotic agents; Z88.5 Allergy status to narcotic agent; Z88.8 Allergy status to other drugs, medicaments and biological substances
CPT/HCPCS: 71046; 99212; G0463